=== PATIENT | female | born 2000 | race Caucasian/White ===

== ENCOUNTER 2019-09-02 09:58 | Emergency (ER) | payer OTHER ==
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
== END 2019-09-02 10:43 | disposition home or self-care (01) ==
LOC: MW.ED 09:58
CPT/HCPCS: 99282; 99283

== ENCOUNTER 2020-04-07 14:07 | Emergency (ER) | payer SELFPAY ==
[2020-04-07] MEDS ORDERED: Ondansetron 4 MG Tab.DIS PO ONE (14:57)
--- NOTE | 2020-04-07 15:17 | PCM.SN.2 ---
- Free Text/Narrative Note: EKG Time 308pm Rate 80 NSR No JACKLYN
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
[2020-04-07 15:49] LABS: BLOOD UREA NITROGEN,BUN 7 mg/dL (7.0-18.0); CHLORIDE,CL 103 mmol/L (98-107); GLUCOSE RANDOM 85 mg/dL (74-106); LIPASE 60 U/L (73-393); POTASSIUM,K 3.3 mmol/L (3.5-5.1); SODIUM,NA 139 mmol/L (136-145)
== END 2020-04-07 16:51 | disposition home or self-care (01) ==
LOC: MW.ED 14:07
DX: R11.0 Nausea (principal); R63.0 Anorexia; F17.210 Nicotine dependence, cigarettes, uncomplicated; Z88.2 Allergy status to sulfonamides
CPT/HCPCS: 36415; 80053; 81001; 81025; 83690; 85025; 93005; 99284; A9270; 93010; 99283

== ENCOUNTER 2020-04-11 16:28 | Emergency (ER) | payer SELFPAY ==
[2020-04-11] MEDS ORDERED: Ondansetron 4 MG/2 ML SDV IVPUSH ONE (16:48)
[2020-04-11] MEDS ORDERED: Sodium Chloride 0.9% 2.5 ML Syringe FLUSH PRN (16:48)
[2020-04-11] MEDS ORDERED: Ketorolac 15 MG/ML SDV IVPUSH ONE (16:48)
[2020-04-11] MEDS ORDERED: Sodium Chloride 0.9% 10 ML Syringe FLUSH PRN (16:48)
[2020-04-11] MEDS ORDERED: Sodium Chloride 0.9% 1,000 ML IV ONE (16:50)
[2020-04-11] MEDS ORDERED: Sodium Chloride 0.9% 10 ML SDV IV SCH (17:00)
[2020-04-11] MEDS ORDERED: cefTRIAXone 2 GM in Premix Bag 1 BAG IV ONE (17:11)
[2020-04-11 17:19] LABS: BLOOD UREA NITROGEN,BUN 6 mg/dL (7.0-18.0); CARBON DIOXIDE,CO2 24.7 mmol/L (21.0-32.0); CHLORIDE,CL 104 mmol/L (98-107); GLUCOSE RANDOM 102 mg/dL (74-106); SODIUM,NA 142 mmol/L (136-145)
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
--- NOTE | 2020-04-11 18:19 | CT ---
Indication: Left-sided pain Technique: Nonenhanced axial CT imaging through the abdomen and pelvis. Sagittal and coronal reconstructions are provided. Comparison: None Findings: There is normal renal parenchymal attenuation without hydronephrosis. No stones are seen in the renal collecting systems, ureters, or urinary bladder. Small calcific density in the right pelvis is consistent with a phlebolith. There is unremarkable noncontrast appearance of the liver, gallbladder, spleen, pancreas, and adrenal glands. There is no abdominal lymphadenopathy. There is normal caliber of the abdominal aorta. The stomach and duodenum are unremarkable. There are no abnormally dilated small bowel loops. The appendix is not well-visualized. There is no colonic wall thickening. No inflammatory changes are demonstrated in the mesentery. The uterus and ovaries are grossly unremarkable. No free fluid is appreciated in the pelvis. The osseous structures are unremarkable. The included lung bases are clear. Impression: No acute process is demonstrated in the abdomen and pelvis. No nephrolithiasis or urinary obstruction. Please note that all CT scans at this facility use dose modulation, iterative reconstruction, and/or weight-based dosing when appropriate to reduce radiation dose to as low as reasonably achievable. Dictated by Rand Solomon MD @ Apr 11 2020 6:12PM Signed by Dr. Rand Solomon @ Apr 11 2020 6:17PM
== END 2020-04-11 18:58 | disposition home or self-care (01) ==
LOC: MW.ED 16:28
DX: N10 Acute pyelonephritis (principal); F17.210 Nicotine dependence, cigarettes, uncomplicated; Z88.2 Allergy status to sulfonamides
CPT/HCPCS: 36415; 74176; 80053; 81001; 81025; 85025; 87086; 87088; 87186; 96365; 96375; 99285; J0696; J1885; J2405; J7030; 99283

== ENCOUNTER 2020-04-21 14:55 | Emergency (ER) | payer OTHER ==
[2020-04-21] MEDS ORDERED: Sodium Chloride 0.9% 1,000 ML IV ONE (15:41)
[2020-04-21] MEDS ORDERED: Ketorolac 30 MG/ML SDV IVPUSH ONE (15:41)
[2020-04-21] MEDS ORDERED: Ondansetron 4 MG/2 ML SDV IVPUSH ONE (15:50)
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
[2020-04-21 16:53] LABS: BLOOD UREA NITROGEN,BUN 15 mg/dL (7.0-18.0); CARBON DIOXIDE,CO2 24.9 mmol/L (21.0-32.0); CHLORIDE,CL 103 mmol/L (98-107); GLUCOSE RANDOM 131 mg/dL (74-106); LIPASE 61 U/L (73-393); POTASSIUM,K 3.7 mmol/L (3.5-5.1); SODIUM,NA 138 mmol/L (136-145)
[2020-04-21] MEDS ORDERED: Doxycycline 100 MG Cap PO ONE ×2 (17:47→18:08)
[2020-04-21] MEDS ORDERED: cefTRIAXone 1 GM in Premix Bag 1 BAG IV ONE (17:47)
[2020-04-21] MEDS ORDERED: metroNIDAZOLE 250 MG Tab PO ONE (18:38)
--- NOTE | 2020-04-21 19:04 | US ---
INDICATION: Pelvic pain TECHNIQUE: Ultrasound pelvis transvaginal. Endovaginal imaging was performed to better visualize the endometrium and ovaries. Real-time taylor scale sonographic images with spectral and color Doppler imaging of the ovaries were obtained. COMPARISON: CT 04/11/2020 FINDINGS: Uterus: 6.5 x 2.7 x 3.7 cm. Normal echotexture of the myometrium noted with no masses are seen. Endometrium: 8 mm. No sign of endometrial mass or fluid present. Right ovary: 2.6 x 2.4 x 1.9 cm. The right ovary is normal in appearance and echotexture. Arterial blood flow seen within the right ovary. Left ovary: 2.1 x 2.7 x 1.3 cm. The left ovary is normal in appearance and echotexture. Arterial blood flow seen within the left ovary. Cul-de-sac: Trace simple pelvic ascites is present in the right adnexa. IMPRESSION: 1. Unremarkable pelvic ultrasound. Dictated by Bhavesh Brito MD @ 04/21/2020 7:03:39 PM Dictated by: Bhavesh Brito MD @ 04/21/2020 19:03:43 (Electronically Signed)
[2020-04-21] MEDS ORDERED: Iopamidol 755 MG/ML 500 ML Multipack Bottle IVPUSH ONE (19:19)
--- NOTE | 2020-04-21 19:44 | CT ---
INDICATION: Right-sided abdominal and pelvic pain. Pain during sexual intercourse. History of endometriosis. COMPARISON: CT of the abdomen and pelvis without contrast from 04/11/2020 TECHNIQUE: CT examination of the abdomen and pelvis was performed with the uneventful intravenous administration of 100 cc of Isovue 370 while 3 mm thick axial sections were obtained from the lung bases through the pubic symphysis. Oral contrast was not administered. Please note that all CT scans at this facility use dose modulation, iterative reconstruction, and/or weight-based dosing when appropriate to reduce radiation dose to as low as reasonably achievable. FINDINGS: In the abdomen, the liver, spleen, pancreas, and adrenals are normal in appearance. The kidneys are normal in appearance. The gallbladder is normal in appearance. The abdominal aorta is normal in caliber with no sign of dilatation. There is no sign of retroperitoneal mass or adenopathy. The stomach, loops of small bowel, and colon in the abdomen are normal in appearance. In the pelvis, the appendix partially seen and is normal in appearance with no sign of inflammatory process. The loops of small bowel and colon in the pelvis are normal in appearance. The right ovary contains an irregularly shaped peripherally enhancing cyst measuring 2.0 centimeters in diameter, probably a resolving cyst. There is a tiny amount of free fluid in the right pelvis adjacent to the right ovary, possibly related to cyst rupture. The uterus and left adnexal region are normal in appearance. The urinary bladder is normal in appearance. There is no sign of pelvic or inguinal mass or adenopathy. There is no sign of free air or free fluid in the abdomen. There is no sign of free air or extraluminal air in the pelvis. The lung bases are clear. The osseous structures are normal in appearance for the patient`s age. IMPRESSION: Normal CT of the abdomen with contrast. CT of the abdomen shows a probable resolving cyst on the right ovary measuring up to 2.0 centimeters in diameter. There is a tiny amount of free fluid in the right pelvis, possibly related to cyst rupture. Normal appearance of the appendix. Please note that all CT scans at this facility use dose modulation, iterative reconstruction, and/or weight-based dosing when appropriate to reduce radiation dose to as low as reasonably achievable. Dictated by Yovany Ching MD @ Apr 21 2020 7:36PM Signed by Dr. Yovany Ching @ Apr 21 2020 7:43PM
[2020-04-24 12:03] LABS: C.TRACHOMATIS BY TMA Negative (Negative); N.GONORRHOEAE BY TMA Negative (Negative)
== END 2020-04-21 19:59 | disposition home or self-care (01) ==
LOC: MW.ED 14:55
DX: N73.9 Female pelvic inflammatory disease, unspecified (principal); N76.0 Acute vaginitis; B96.89 Other specified bacterial agents as the cause of diseases classified elsewhere; Z88.2 Allergy status to sulfonamides
CPT/HCPCS: 36415; 74177; 76830; 80053; 81001; 83690; 84703; 85025; 87086; 87480; 87491; 87510; 87591; 87660; 96365; 96375; 99284; A9270; J0696; J1885; J2405; J7030; Q9967; 99283

== ENCOUNTER 2020-07-31 08:17 | Emergency (ER) | payer SELFPAY ==
[2020-07-31] MEDS ORDERED: Sodium Chloride 0.9% 1,000 ML IV ONE (08:40)
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
[2020-07-31] MEDS ORDERED: cefTRIAXone 1 GM in Premix Bag 1 BAG IV ONE (09:26)
--- NOTE | 2020-07-31 09:36 | US ---
INDICATION: Left lower quadrant pain TECHNIQUE: Ultrasound OB pelvis transabdominal and transvaginal. Real-time taylor-scale imaging of the pelvis was performed. COMPARISON: None FINDINGS: Sonographic imaging demonstrates a single living intrauterine gestation. The embryo demonstrates a regular cardiac rate measuring 176 beats per minute. The embryo`s crown rump length measurement of 1.8 cm corresponds to a gestational age of 8 weeks 3 days with a sonographic due date of 03/08/2021. There is a normal appearing yolk sac. There are no gross abnormalities noted within the embryo at this early state of development. The placenta has not yet developed. There is no sign of perigestational hemorrhage. There is trace physiologic fluid in the cul-de-sac. The ovaries are of normal size. There are no suspicious fluid collections noted in the cul-de-sac. IMPRESSION: Single viable intrauterine measuring 8 weeks 4 days by ultrasound measurements. No abnormalities seen. Dictated by Eamon Maradiaga MD @ Jul 31 2020 9:26AM Signed by Dr. Eamon Maradiaga @ Jul 31 2020 9:34AM
[2020-07-31 10:52] LABS: BLOOD UREA NITROGEN,BUN 7 mg/dL (7.0-18.0); CARBON DIOXIDE,CO2 25.2 mmol/L (21.0-32.0); CHLORIDE,CL 102 mmol/L (98-107); GLUCOSE RANDOM 84 mg/dL (74-106); LIPASE 51 U/L (73-393); POTASSIUM,K 3.8 mmol/L (3.5-5.1); SODIUM,NA 135 mmol/L (136-145)
== END 2020-07-31 11:33 | disposition home or self-care (01) ==
LOC: MW.ED 08:17
DX: O23.01 Infections of kidney in pregnancy, first trimester (principal); Z88.2 Allergy status to sulfonamides; Z3A.08 8 weeks gestation of pregnancy
CPT/HCPCS: 36415; 76801; 80053; 81001; 83690; 83735; 84702; 85025; 86900; 86901; 87086; 96365; 99284; J0696; J7030

== ENCOUNTER 2020-09-12 06:58 | Emergency (ER) | payer SELFPAY ==
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
[2020-09-12 08:18] LABS: BLOOD UREA NITROGEN,BUN 6 mg/dL (7.0-18.0); CARBON DIOXIDE,CO2 20.8 mmol/L (21.0-32.0); CHLORIDE,CL 105 mmol/L (98-107); GLUCOSE RANDOM 87 mg/dL (74-106); LIPASE 50 U/L (73-393); POTASSIUM,K 3.8 mmol/L (3.5-5.1); SODIUM,NA 137 mmol/L (136-145)
--- NOTE | 2020-09-12 09:27 | US ---
INDICATION: with lower abdominal cramping. TECHNIQUE: Ultrasound OB pelvis transabdominal. Real-time taylor-scale imaging of the fetus was performed as well as color Doppler and spectral Doppler analysis of the umbilical artery. COMPARISON: July 31, 2020. FINDINGS: Sonographic imaging demonstrates a single living intrauterine gestation. Fetus demonstrates a regular cardiac rate of 156 beats per minute. Fetus has a cephalic orientation. The placenta lies anterior without evidence of placenta previa. Amniotic fluid volume appears normal with a single deepest pocket of 4.1 cm. Cervix is closed measuring 3.7 cm. Biometry: Biparietal diameter: 2.9 cm, 15 weeks 3 days. Head circumference: 10.8 cm, 15 weeks 2 days. Abdominal circumference: 8.9 cm, 15 weeks 2 days. Femoral length: 1.6 cm, 14 weeks 6 days. The composite ultrasound gestational age is calculated at 15 weeks 2 days with an estimated sonographic due date of March 04, 2021. The weight is estimated at 113 grams, the 60th percentile. IMPRESSION: 1.Single viable intrauterine . 2.No abnormality evident. Normal interval growth has been demonstrated. Dictated by Warren Chahal MD @ 09/12/2020 9:26:[address] Warren Chahal @ Sep 12 2020 9:26AM
== END 2020-09-12 09:55 | disposition home or self-care (01) ==
LOC: MW.ED 06:58
DX: O23.591 Infection of other part of genital tract in pregnancy, first trimester (principal); B96.89 Other specified bacterial agents as the cause of diseases classified elsewhere; Z3A.10 10 weeks gestation of pregnancy
CPT/HCPCS: 36415; 76801; 76801-26; 80053; 81001; 83690; 83735; 84100; 84702; 85025; 87480; 87491; 87510; 87591; 87660; 99283; 99284-25

== ENCOUNTER 2021-02-12 02:54 | Emergency (ER) | payer OTHER ==
[2021-02-12] MEDS ORDERED: Acetaminophen 325 MG Tab PO ONE (03:12)
--- NOTE | 2021-02-12 03:49 | CR ---
Indication: Cough Technique: Chest 2 views Comparison: Chest x-ray 03/19/2018 Findings/Impression: Cardiovascular and mediastinum: Heart size and vasculature are normal in caliber and appearance. Mediastinum is within normal limits. Lungs and pleural spaces: Lungs are clear. No sign of infiltrate or mass. No sign of pleural effusion. No pneumothorax. Bones and soft tissues: No significant findings. Dictated by Richard Prince MD @ 02/12/2021 3:48:16 AM (Electronically Signed)
[2021-02-12 04:09] LABS: CORONAVIRUS COVID-19 NAA NEGATIVE (NEGATIVE); INFLUENZA A NAA NEGATIVE (NEGATIVE); INFLUENZA B NAA NEGATIVE (NEGATIVE)
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
== END 2021-02-12 04:49 | disposition home or self-care (01) ==
LOC: MW.ED 02:54
DX: O99.513 Diseases of the respiratory system complicating pregnancy, third trimester (principal); J06.9 Acute upper respiratory infection, unspecified; O99.891 Other specified diseases and conditions complicating pregnancy; R07.89 Other chest pain; Z88.2 Allergy status to sulfonamides; Z20.822 Contact with and (suspected) exposure to COVID-19; Z3A.36 36 weeks gestation of pregnancy
CPT/HCPCS: 0240U; 71046; 93005; 99285; A9270

== ENCOUNTER 2021-02-24 08:55 | Inpatient (IN) | payer OTHER ==
[2021-02-24] MEDS ORDERED: Sodium Chloride 0.9% 10 ML Syringe FLUSH PRN (09:43)
[2021-02-24] MEDS ORDERED: Lidocaine 1% 50 ML MDV INJECT PRN (09:43)
[2021-02-24] MEDS ORDERED: Ondansetron 4 MG/2 ML SDV IVPUSH PRN (09:43)
[2021-02-24] MEDS ORDERED: Tranexamic Acid 1,000 MG in Sodium Chloride 0.9% 100 ML IV PRN (09:43)
[2021-02-24] MEDS ORDERED: Sodium Chloride 0.9% 10 ML SDV IV PRN (09:43)
[2021-02-24] MEDS ORDERED: Sodium Chloride 0.9% 2.5 ML Syringe FLUSH PRN (09:43)
[2021-02-24] MEDS ORDERED: Carboprost Tromethamine 250 MCG/1 ML Amp IM PRN (09:43)
[2021-02-24] MEDS ORDERED: Water For Irrigation,Sterile 1,000 ML Container IRR PRN (09:43)
[2021-02-24] MEDS ORDERED: Methylergonovine 0.2 MG/1 ML Amp IM PRN (09:43)
[2021-02-24] MEDS ORDERED: Misoprostol 200 MCG Tab PO PRN (09:43)
[2021-02-24] MEDS ORDERED: Oxytocin/0.9 % Sodium Chloride 30 UNIT/500 ML BAG IV SCH (09:45)
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
[2021-02-24] MEDS: Lactated Ringers 1,000 ML IV SCH ×3 (15:36→18:58)
[2021-02-24] MEDS: Nalbuphine 10 MG/1 ML Vial IVPUSH PRN ×2 (15:36→16:47)
[2021-02-24] MEDS ORDERED: Ropivacaine HCl/PF 200 ML ONE (17:51)
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
[2021-02-24] MEDS ORDERED: ePHEDrine 50 MG/ML SDV IVPUSH PRN (19:29)
--- NOTE | 2021-02-24 19:29 | PCM.POSTAN ---
POST ANESTHESIA ASSESSMENT - MENTAL STATUS Mental Status: Alert, Oriented - RESPIRATORY Respiratory Status: Respiratory Rate WNL, Airway Patent, O2 Saturation Stable - CARDIOVASCULAR CV Status: Pulse Rate WNL, Blood Pressure Stable - GASTROINTESTINAL GI Status: No Symptoms - PAIN Pain Score: 3 - POST OP HYDRATION Hydration Status: Adequate & Stable
--- NOTE | 2021-02-24 19:29 | PCM.SN.2 ---
Time Documentation - Pre-Procedure Checklist Attending Provider Aware: Yes Chart Reviewed: Yes Consent Signed: Yes Labs Reviewed: Yes VS/FHR Reviewed: Yes Patient Identification Confirmation Method: Reports: Chart Visual, Verbal Patient Pt an Appropriate Candidate for the Planned Anesthesia: Yes Alternatives and Risks of Anesthesia Discussed w Pt/Guardian: Yes - Procedure Procedure Start Date: 02/24/21 Procedure Start Time: 17:[address]: Reports: Blood Pressure, Heart Rate, SPO2 Functional IV: Yes Safety Measures: Reports: Patient Identified, Procedure Verified, Site Verified, Procedure Time Out Patient Position: Reports: Sitting Prep: Reports: Betadine x3 Local Anesthetic: Reports: Intradermal Wheal w Lidocaine 1% (3 ML) Needle: Reports: 17 g Touhy Approach: Reports: Midline Technique: Reports: PRAFUL Glass Syringe PRAFUL Needle Depth (cm): 6 cm Parasthesia: Reports: None Fluid Obtained: Reports: None Catheter Depth at Skin (cm): 13 cm Test Dose Time: 17:46 Test Dose Medication: Reports: Lidocaine 1.5% w Epinephrine 1:200,000 (5 ml) Test Dose Response: Reports: Negative Loading Dose Time: 17:57 Loading Dose Medication: Ropivicaine 0.2% 8 ML Loading Dose Patient Position: Supine for 4ML and left tilt for 4ML Continuous Infusion Start Time: 18:00 Continuous Infusion Medication: Ropivicaine 0.2% Continuous Infusion Rate: 10 Continuous Infusion PCS Bolus Option: 6 Continuous Infusion Lockout Dose (cc/hr): 20 Patient Position Post Placement: Reports: Supline/MARYAM Post-procedure Pain Level: 3 Level Achieved: T4 VS and FHR Monitored in Unit Post Placement: Yes Procedure End Date: 02/24/21 Procedure End Time: 18:00 Procedure Comment: Sterile technique used throughout.
[2021-02-24] MEDS ORDERED: Ropivacaine/PF 400 MG/200 ML PCA EPIDUR SCH (19:30)
--- NOTE | 2021-02-24 22:09 | PCM.DEL ---
L & D Note - General Info Date of Service: 02/24/21 Mother's Due Date: 03/08/21 - Delivery Note Labor: Spontaneous Delivery Outcome: Livebirth Infant Delivery Method: Spontaneous Vaginal Delivery-Single Infant Delivery Mode: Spontaneous Presentation: Left Occiput Anterior ([place]) (with compound left arm/hand, arm umbilical cord nuchal x1) Nuchal Cord: None Anesthesia Type: Epidural Amniotic Fluid Description: Clear Episiotomy Type: None Laceration: Perineal (Minor skin tear, hemostatic, not repaired.), Periurethral (Bilateral minor skin tear, hemostatic, not repaired.) Placenta: Intact, Spontaneous Cord: 3 Vessels Estimated Blood Loss: 350 Resuscitation Needed: No : Bulb Syringe, Stimulated, Warmed, [place] Used Score 1 min: 8 Score 5 min: 9 Second Stage Interventions: Reports: Second Nurse Reviewed Heart Tones, Encouragement Given, Pushing Effectively, Other (see below) (Hands and knees) Delivery Comments (Free Text/Narrative):: Zora is a 20 yo at 38+2 weeks gestation (SIMRAN(US) 03/08/2021) immediately s/p of viable term NBM following SROM at 9 am today with onset of spontaneous labor. O pos, Ab screen neg, RI, GBS neg. BLE epidural in place, pain well controlled. NRFHTs noted prior to terminal , Dr. Barry and fabrication lead called to bedside, en route. Patient moved to hands and knees position with 100% O2 and LR bolus running for intrauterine resuscitation. FHTs recovered to 110s to 120s in 5 minutes prior to . head delivered [place] with compound left arm and hand, umbilical cord nuchal x1 to left arm. body birthed immediately following with next push. CNM warmed, dried, stimulated with baby RN bulb suctioning, spontaneous cries shortly after . Baby RN then held baby while continuing warming, drying, and stimulation, CNM clamped cord x 2, cut. NBM brought to warmer ~45 seconds after for assessment, spontaneous crying continuing. Dr. Barry and fabrication lead at bedside within 1-2 minutes s/p for maternal and assessment respectively; no further interventions were performed by either provider. IV pitocin bolus started for active third stage management. Patient moved back to semi-fowlers position with both legs in rests, cord blood collected, 2-3 inch segment clamped x2 for RN to collect cord gasses. Placenta birthed intact, [place], 3VC ~10 min s/p . Perineum inspected, minor bilateral periurethral skin tears and minor perineal skin tear noted; all hemostatic or scantly oozing, not repaired. Uterus firm, U-1 with scant rubra lochia, no clots. EBL 350. APGARS 8/9. weight 6 lb 2 oz (2790 g). - General Info Date of Service: 02/24/21 Admission Dx/Problem (Free Text): Patient Status Order with Admit Dx/Problem 02/24/21 08:45 Patient Status [ADT] Routine 02/24/21 09:43 Patient Status [ADT] Routine Admission Diagnosis/Problem Admission Diagnosis/Problem 02/24/21 12:18 Zora is a 20 yo at 38+2 weeks gestation (SIMRAN() 03/08/2021) that presents today w/ C/O painful contractions and SROM today at 9 am today. O pos, Ab screen neg, RI, GBS neg. Reports + FM; denies LOF, vaginal bleeding at this time. Unremarkable course. H/O uncertain paternity, desires tested upon ; PTSD, anxiety, depression. Patient confirmed vertex via SVE. Amnisure positive, confirmed SROM. Functional Status: Reports: Pain Controlled - Review of Systems General: Reports: No Symptoms HEENT: Reports: No Symptoms Pulmonary: Reports: No Symptoms Cardiovascular: Reports: No Symptoms Gastrointestinal: Reports: No Symptoms Genitourinary: Reports: No Symptoms Musculoskeletal: Reports: No Symptoms Skin: Reports: No Symptoms Neurological: Reports: No Symptoms Psychiatric: Reports: No Symptoms - Patient Data Vitals - Most Recent: VSS, afebrile. See flowsheet. Weight - Most Recent: 150 lb I&O - Last 24 Hours: Intake & Output 02/24/21 02/24/21 02/24/21 06:59 14:59 22:59 Intake Total 1999 Balance 1999 Lab Results Last 24 Hours: Laboratory Results - last 24 hr 02/24/21 02/24/21 02/24/21 Range/Units 09:01 10:13 10:13 WBC 10.56 (4.0-11.0) K/uL RBC 4.66 (4.30-5.90) M/uL Hgb 13.7 (12.0-16.0) g/dL Hct 39.6 (36.0-46.0) % MCV 85.0 (80.0-98.0) fL MCH 29.4 (27.0-32.0) pg MCHC 34.6 (31.0-37.0) g/dL RDW Std Deviation 42.4 (28.0-62.0) fl RDW Coeff of Xin 14 (11.0-15.0) % Plt Count 207 (150-400) K/uL MPV 12.40 H (7.40-12.00) fL Nucleated RBC % 0.0 /100WBC Nucleated RBCs # 0 K/uL Membrane Rupture POSITIVE SARS-CoV-2 RNA ([place]NEY) (NEGATIVE) Blood Type O POSITIVE Antibody Screen NEGATIVE 02/24/21 Range/Units 10:19 WBC (4.0-11.0) K/uL RBC (4.30-5.90) M/uL Hgb (12.0-16.0) g/dL Hct (36.0-46.0) % MCV (80.0-98.0) fL MCH (27.0-32.0) pg MCHC (31.0-37.0) g/dL RDW Std Deviation (28.0-62.0) fl RDW Coeff of Xin (11.0-15.0) % Plt Count (150-400) K/uL MPV (7.40-12.00) fL Nucleated RBC % /100WBC Nucleated RBCs # K/uL Membrane Rupture SARS-CoV-2 RNA (C[facility]RTNEY) NEGATIVE (NEGATIVE) Blood Type Antibody Screen Med Orders - Current: Current Medications Carboprost Tromethamine (Carboprost Tromethamine 250 Mcg/1 Ml Amp) 250 mcg IM ASDIRECTED PRN PRN Reason: Post Hemorrhage Ephedrine Sulfate (Ephedrine 50 Mg/Ml Sdv) 10 mg IVPUSH Q1M PRN PRN Reason: Hypotension Lactated Ringer's (Ringers, Lactated) 1,000 mls @ 150 mls/hr IV ASDIRECTED YANI Last Admin: 02/24/21 18:58 Dose: 150 mls/hr Documented by: Oxytocin/Sodium Chloride (Oxytocin 30 Unit In Ns 0.9% 500 Ml Premix) 30 unit in 500 mls @ 500 mls/hr IV TITRATE YANI Tranexamic Acid 1,000 mg/ (Sodium Chloride) 110 mls @ 660 mls/hr IV ONETIME PRN PRN Reason: Bleeding Lidocaine HCl (Lidocaine 1% 50 Ml Mdv) 50 ml INJECT ONETIME PRN PRN Reason: Laceration repair Methylergonovine Maleate (Methylergonovine 0.2 Mg/1 Ml Amp) 0.2 mg IM ASDIRECTED PRN PRN Reason: Post Hemorrhage Miscellaneous Medication (Phenylephrine Hcl In 0.9% Nacl 1 Mg/10 Ml Syringe) 0.1 mg IVPUSH Q1M PRN PRN Reason: Hypotension Misoprostol (Misoprostol 200 Mcg Tab) 200 mcg PO ONETIME PRN PRN Reason: Post Hemorrhage Nalbuphine HCl (Nalbuphine 10 Mg/1 Ml Vial) 10 mg IVPUSH Q1H PRN PRN Reason: Pain (severe 7-10) Last Admin: 02/24/21 16:47 Dose: 10 mg Documented by: Ondansetron HCl (Ondansetron 4 Mg/2 Ml Sdv) 4 mg IVPUSH Q6H PRN PRN Reason: Nausea/Vomiting Last Admin: 02/24/21 15:43 Dose: 4 mg Documented by: Ropivacaine (Ropivacaine/Pf 400 Mg/200 Ml Staff Sonographer) 400 mg EPIDUR ASDIRECTED YANI Sodium Chloride (Sodium Chloride 0.9% 10 Ml Syringe) 10 ml FLUSH ASDIRECTED PRN PRN Reason: Keep Vein Open Sodium Chloride (Sodium Chloride 0.9% 2.5 Ml Syringe) 2.5 ml FLUSH ASDIRECTED PRN PRN Reason: Keep Vein Open Sodium Chloride (Sodium Chloride 0.9% 10 Ml Sdv) 10 ml IV ASDIRECTED PRN PRN Reason: IV Use Sterile Water (Water For Irrigation,Sterile 1,000 Ml Container) 1,000 ml IRR ASDIRECTED PRN PRN Reason: delivery Discontinued Medications Ropivacaine (Naropin 0.2%) Confirm Administered Dose 200 mls @ as directed .ROUTE .STK-MED ONE Stop: 02/24/21 17:52 Last Admin: 02/24/21 19:04 Dose: Not Given Documented by: - Exam General: Alert, Oriented, Cooperative, No Acute Distress HEENT: Pupils Equal, Mucous Membr. Moist/[place] Neck: Supple Lungs: Clear to Auscultation, Normal Respiratory Effort Cardiovascular: Regular Rate, Regular Rhythm GI/Abdominal Exam: Normal Bowel Sounds, Soft, Non-Tender, No Organomegaly, No Distention (Female) Exam: Normal External Exam, Enlarged Uterus ( uterus, firm U-1), Vaginal Bleeding (scant rubra lochia no clots.) Back Exam: Normal Inspection, Full Range of Motion Extremities: Normal Inspection, Normal Range of Motion, Non-Tender, No Pedal Edema, Normal Capillary Refill Skin: Warm, Dry, Intact Wound/Incisions: No Drainage Neurological: No New Focal Deficit (BLE epidural intact, pain well controlled.) Psy/Mental Status: Alert, Normal Affect, Normal Mood - Problem List & Annotations (1) (spontaneous vaginal delivery) SNOMED Code(s): 503085095 Code(s): O80 - ENCOUNTER FOR FULL-TERM UNCOMPLICATED DELIVERY Status: Acute Priority: High Current Visit: Yes (2) Lactating mother SNOMED Code(s): 364003855, 724271970 Code(s): Z39.1 - ENCOUNTER FOR CARE AND EXAMINATION OF LACTATING MOTHER Status: Acute Priority: High Current Visit: Yes - Problem List Review Problem List Initiated/Reviewed/Updated: Yes - My Orders Last 24 Hours: My Active Orders 02/24/21 09:05 Resuscitation Status Routine 02/24/21 09:08 Non Stress Test [RC] PER UNIT ROUTINE Up ad Renetta [RC] ASDIRECTED Vaginal Exam [RC] Click to Edit Vital Signs [RC] PER UNIT ROUTINE 02/24/21 09:43 Patient Status [ADT] Routine Heart Tones [RC] CONTINUOUS May Shower [RC] ASDIRECTED Notify Provider [RC] PRN Carboprost Tromethamine [Hemabate DS] 250 mcg IM ASDIRECTED PRN Lidocaine 1% [Xylocaine 1%] 50 ml INJECT ONETIME PRN Methylergonovine [Methergine] 0.2 mg IM ASDIRECTED PRN Nalbuphine [Nubain] 10 mg IVPUSH Q1H PRN Ondansetron [Zofran] 4 mg IVPUSH Q6H PRN Sodium Chloride 0.9% [Normal Saline] 10 ml IV ASDIRECTED PRN Sodium Chloride 0.9% [Saline Flush] 10 ml FLUSH ASDIRECTED PRN Sodium Chloride 0.9% [Saline Flush] 2.5 ml FLUSH ASDIRECTED PRN Tranexamic Acid [Cyklokapron] 1,000 mg Sodium Chloride 0.9% [Normal Saline] 100 ml IV ONETIME Water For Irrigation,Sterile [Sterile Water for Irrigation] 1,000 ml IRR ASDIRECTED PRN miSOPROStoL [Cytotec] 200 mcg PO ONETIME PRN Scalp Electrode [WOMSER] Per Unit Routine Peripheral IV Insertion Adult [OM.PC] Routine 02/24/21 09:45 Lactated Ringers [Ringers, Lactated] 1,000 ml IV ASDIRECTED Oxytocin/0.9 % Sodium Chloride [Oxytocin 30 Unit in NS 0.9% 500 ML Premix] 30 unit in 500 ml IV TITRATE 02/24/21 10:13 RPR (SYPHILIS SERO) W/ RFLX [REF] Routine - Plan Plan:: Admit to inpatient unit s/p of viable, term following SROM and spontaneous onset of labor. Resume regular diet. D/C epidural now. May ambulate in 2-4 hours following return of sensation with assistance. If not voided within 6 hours, may I&O cath once and notify provider. See new orders. Dr. Barry notified and agreeable with POC.
[2021-02-24] MEDS ORDERED: Bisacodyl 10 MG Supp RECTAL PRN (22:29)
[2021-02-24] MEDS ORDERED: Benzocaine/Menthol 20%-0.5% Spray 78 GM Cannister TOP PRN (22:29)
[2021-02-24] MEDS ORDERED: Ibuprofen 400 MG Tab PO PRN (22:29)
[2021-02-24] MEDS ORDERED: Acetaminophen 500 MG Tab PO PRN (22:29)
[2021-02-24] MEDS ORDERED: Lanolin 100% Cream 7 GM Tube TOP PRN (22:29)
[2021-02-24] MEDS ORDERED: oxyCODONE 5 MG Tab PO PRN (22:29)
[2021-02-24] MEDS ORDERED: Witch Hazel Medicated Pads 40/Jar TOP PRN (22:29)
[2021-02-24] MEDS: Ibuprofen 800 MG Tab PO PRN (22:39)
[2021-02-25] MEDS: Ibuprofen 800 MG Tab PO PRN ×4 (04:18→23:21)
--- NOTE | 2021-02-25 04:24 | PCM.PNPP ---
- General Info Date of Service: 02/25/21 Admission Dx/Problem (Free Text): Patient Status Order with Admit Dx/Problem 02/24/21 08:45 Patient Status [ADT] Routine 02/24/21 09:43 Patient Status [ADT] Routine Admission Diagnosis/Problem Admission Diagnosis/Problem 02/24/21 12:18 Zora is a 20 yo at 38+2 weeks gestation (SIMRAN(US) 03/08/2021) that presents today w/ C/O painful contractions and SROM today at 9 am today. O pos, Ab screen neg, RI, GBS neg. Reports + FM; denies LOF, vaginal bleeding at this time. Unremarkable course. H/O uncertain paternity, desires tested upon ; PTSD, anxiety, depression. Patient confirmed vertex via SVE. Amnisure positive, confirmed SROM. Subjective Update: Zora is a 20 yo current immediately s/p of viable term NBM at at 38 +2 weeks gestation (SIMRAN(US) 03/08/2021) following SROM with onset of spontaneous labor. O pos, Ab screen neg, RI, GBS neg. Currently resting in bed, infant in bedside in bassinet. Independently eating, hydrating, voiding, and ambulating. Breast feeding well, no problems. Denies any complaints or concerns at this time except fatigue re: cluster feeding and mild to moderate intermittent uterine cramping somewhat relieved with ibuprofen. Reports small vaginal bleeding, no clots. No other problems or concerns at this time. Functional Status: Reports: Pain Controlled, Tolerating Diet, Ambulating, Urinating - Review of Systems General: Reports: No Symptoms HEENT: Reports: No Symptoms Pulmonary: Reports: No Symptoms Cardiovascular: Reports: No Symptoms Gastrointestinal: Reports: No Symptoms Genitourinary: Reports: No Symptoms Musculoskeletal: Reports: No Symptoms Skin: Reports: No Symptoms Neurological: Reports: No Symptoms Psychiatric: Reports: No Symptoms - General Info Date of Service: 02/25/21 - Patient Data Vital Signs - Most Recent: Last Vital Signs Temp 98.2 F 02/25/21 03:20 Pulse 62 02/25/21 03:20 Resp 15 02/25/21 03:20 BP 108/63 02/25/21 03:20 Pulse Ox 97 02/25/21 03:20 Weight - Most Recent: 150 lb I&O - Last 24 Hours: Intake & Output 02/24/21 02/24/21 02/25/21 14:59 22:59 06:59 Intake Total 1999 Balance 1999 Lab Results - Last 24 Hours: Laboratory Results - last 24 hr 02/24/21 02/24/21 02/24/21 Range/Units 09:01 10:13 10:13 WBC 10.56 (4.0-11.0) K/uL RBC 4.66 (4.30-5.90) M/uL Hgb 13.7 (12.0-16.0) g/dL Hct 39.6 (36.0-46.0) % MCV 85.0 (80.0-98.0) fL MCH 29.4 (27.0-32.0) pg MCHC 34.6 (31.0-37.0) g/dL RDW Std Deviation 42.4 (28.0-62.0) fl RDW Coeff of Xin 14 (11.0-15.0) % Plt Count 207 (150-400) K/uL MPV 12.40 H (7.40-12.00) fL Nucleated RBC % 0.0 /100WBC Nucleated RBCs # 0 K/uL Cord ABG pH (7.18-7.38) Cord ABG Base Excess (-10--2) Cord VBG pH (7.25-7.45) Cord VBG Base Excess (-10--2) Membrane Rupture POSITIVE SARS-CoV-2 RNA (COURTNEY) (NEGATIVE) Blood Type O POSITIVE Antibody Screen NEGATIVE 02/24/21 02/24/21 Range/Units 10:19 21:40 WBC (4.0-11.0) K/uL RBC (4.30-5.90) M/uL Hgb (12.0-16.0) g/dL Hct (36.0-46.0) % MCV (80.0-98.0) fL MCH (27.0-32.0) pg MCHC (31.0-37.0) g/dL RDW Std Deviation (28.0-62.0) fl RDW Coeff of Xin (11.0-15.0) % Plt Count (150-400) K/uL MPV (7.40-12.00) fL Nucleated RBC % /100WBC Nucleated RBCs # K/uL Cord ABG pH 7.162 L (7.18-7.38) Cord ABG Base Excess -8 (-10--2) Cord VBG pH 7.218 L (7.25-7.45) Cord VBG Base Excess -6 (-10--2) Membrane Rupture SARS-CoV-2 RNA (COURTNEY) NEGATIVE (NEGATIVE) Blood Type Antibody Screen Med Orders - Current: Current Medications Acetaminophen (Acetaminophen 500 Mg Tab) 500 mg PO Q4H PRN PRN Reason: Pain (mild 1-3) Last Admin: 02/24/21 22:39 Dose: 500 mg Documented by: Acetaminophen (Acetaminophen 500 Mg Tab) 1,000 mg PO Q4H PRN PRN Reason: Pain (mild 1-3) Benzocaine/Menthol (Benzocaine/Menthol 20%-0.5% [place] 78 Gm Cannister) 78 gm TOP ASDIRECTED PRN PRN Reason: Perineal Comfort Measure Last Admin: 02/24/21 23:13 Dose: 1 can Documented by: Bisacodyl (Bisacodyl 10 Mg Supp) 10 mg RECTAL ONETIME PRN PRN Reason: Constipation Docusate Sodium (Docusate Sodium 100 Mg Cap) 100 mg PO Q12H PRN PRN Reason: Constipation Emollient Ointment (Lanolin 100% Cream 7 Gm Tube) 0 gm TOP ASDIRECTED PRN PRN Reason: Sore Nipples Last Admin: 02/24/21 23:14 Dose: 7 gm Documented by: Ibuprofen (Ibuprofen 400 Mg Tab) 400 mg PO Q4H PRN PRN Reason: Pain (mild 1-3) Ibuprofen (Ibuprofen 800 Mg Tab) 800 mg PO Q6H PRN PRN Reason: Cramping Last Admin: 02/25/21 04:18 Dose: 800 mg Documented by: Oxycodone HCl (Oxycodone 5 Mg Tab) 5 mg PO Q2H PRN PRN Reason: Pain (severe 7-10) Witch Irina (Witch Irina Medicated Pads 40/Jar) 1 pad TOP ASDIRECTED PRN PRN Reason: comfort care Last Admin: 02/24/21 23:14 Dose: 1 tub Documented by: Discontinued Medications Carboprost Tromethamine (Carboprost Tromethamine 250 Mcg/1 Ml Amp) 250 mcg IM ASDIRECTED PRN PRN Reason: Post Hemorrhage Ephedrine Sulfate (Ephedrine 50 Mg/Ml Sdv) 10 mg IVPUSH Q1M PRN PRN Reason: Hypotension Lactated Ringer's (Ringers, Lactated) 1,000 mls @ 150 mls/hr IV ASDIRECTED [facility] Last Admin: 02/24/21 18:58 Dose: 150 mls/hr Documented by: Oxytocin/Sodium Chloride (Oxytocin 30 Unit In Ns 0.9% 500 Ml Premix) 30 unit in 500 mls @ 500 mls/hr IV TITRATE [facility] Last Infusion: 02/24/21 22:05 Dose: 250 mls/hr Documented by: Tranexamic Acid 1,000 mg/ (Sodium Chloride) 110 mls @ 660 mls/hr IV ONETIME PRN PRN Reason: Bleeding Ropivacaine (Naropin 0.2%) Confirm Administered Dose 200 mls @ as directed .ROUTE .[facility]-MED ONE Stop: 02/24/21 17:52 Last Admin: 02/24/21 19:04 Dose: Not Given Documented by: Lidocaine HCl (Lidocaine 1% 50 Ml Mdv) 50 ml INJECT ONETIME PRN PRN Reason: Laceration repair Methylergonovine Maleate (Methylergonovine 0.2 Mg/1 Ml Amp) 0.2 mg IM ASDIRECTED PRN PRN Reason: Post Hemorrhage Miscellaneous Medication (Phenylephrine Hcl In 0.9% Nacl 1 Mg/10 Ml Syringe) 0.1 mg IVPUSH Q1M PRN PRN Reason: Hypotension Misoprostol (Misoprostol 200 Mcg Tab) 200 mcg PO ONETIME PRN PRN Reason: Post Hemorrhage Nalbuphine HCl (Nalbuphine 10 Mg/1 Ml Vial) 10 mg IVPUSH Q1H PRN PRN Reason: Pain (severe 7-10) Last Admin: 02/24/21 16:47 Dose: 10 mg Documented by: Ondansetron HCl (Ondansetron 4 Mg/2 Ml Sdv) 4 mg IVPUSH Q6H PRN PRN Reason: Nausea/Vomiting Last Admin: 02/24/21 15:43 Dose: 4 mg Documented by: Ropivacaine (Ropivacaine/Pf 400 Mg/200 Ml Literary Writer) 400 mg EPIDUR ASDIRECTED [facility] Sodium Chloride (Sodium Chloride 0.9% 10 Ml Syringe) 10 ml FLUSH ASDIRECTED PRN PRN Reason: Keep Vein Open Sodium Chloride (Sodium Chloride 0.9% 2.5 Ml Syringe) 2.5 ml FLUSH ASDIRECTED PRN PRN Reason: Keep Vein Open Sodium Chloride (Sodium Chloride 0.9% 10 Ml Sdv) 10 ml IV ASDIRECTED PRN PRN Reason: IV Use Sterile Water (Water For Irrigation,Sterile 1,000 Ml Container) 1,000 ml IRR ASDIRECTED PRN PRN Reason: delivery Last Admin: 02/24/21 21:50 Dose: 1,000 ml Documented by: - Interaction Infant Disposition, : [place] in Room with Family Interaction: Not Interacting Infant Feeding: Breastfed ; Nursed Well, Continues to Breastfeed, Encouraged to Breastfeed Support Person: Mother - Recovery Exam Fundal Tone: Firm Fundal Level: At Umbilicus Fundal Placement: Midline Lochia Amount: Small Lochia Color: Rubra/Red Perineum Description: Redness, Edematous Episiotomy/Laceration: None Bladder Status: Voiding Urinary Elimination: Voided - Exam General: Alert, Oriented, Cooperative, No Acute Distress HEENT: Pupils Equal, Mucous Membr. Moist/[place] Neck: Supple Lungs: Clear to Auscultation, Normal Respiratory Effort Cardiovascular: Regular Rate, Regular Rhythm GI/Abdominal Exam: Normal Bowel Sounds, Soft, Non-Tender, No Organomegaly, No Distention Extremities: Normal Inspection, Normal Range of Motion, Non-Tender, No Pedal Edema, Normal Capillary Refill Skin: Warm, Dry, Intact Wound/Incisions: No Drainage Psy/Mental Status: Alert, Normal Affect, Normal Mood - Problem List & Annotations (1) (spontaneous vaginal delivery) SNOMED Code(s): 374609814 Code(s): O80 - ENCOUNTER FOR FULL-TERM UNCOMPLICATED DELIVERY Status: Acute Priority: High Current Visit: Yes (2) Lactating mother SNOMED Code(s): 461817440, 461928955 Code(s): Z39.1 - ENCOUNTER FOR CARE AND EXAMINATION OF LACTATING MOTHER Status: Acute Priority: High Current Visit: Yes - Problem List Review Problem List Initiated/Reviewed/Updated: Yes - My Orders Last 24 Hours: My Active Orders 02/24/21 10:13 RPR (SYPHILIS SERO) W/ RFLX [REF] Routine 02/24/21 Dinner Regular Diet [DIET] 02/24/21 22:29 Patient Status [ADT] Routine May Shower [RC] ASDIRECTED Up ad Renetta [RC] ASDIRECTED Vital Signs [RC] PER UNIT ROUTINE Acetaminophen [Tylenol Extra Strength] 1,000 mg PO Q4H PRN Acetaminophen [Tylenol Extra Strength] 500 mg PO Q4H PRN Benzocaine/Menthol [Dermoplast Pain Relief 20%-0.5% [place]] 78 gm TOP ASDIRECTED PRN Docusate Sodium [Colace] 100 mg PO Q12H PRN Ibuprofen [Motrin] 400 mg PO Q4H PRN Ibuprofen [Motrin] 800 mg PO Q6H PRN Lanolin [Lansinoh HPA] See Dose Instructions TOP ASDIRECTED PRN bisacodyL [Dulcolax] 10 mg RECTAL ONETIME PRN oxyCODONE 5 mg PO Q2H PRN witch Irina [Tucks] 1 pad TOP ASDIRECTED PRN Assess Lochia [WOMSER] Per Unit Routine Assess Uterine Involution [WOMSER] Per Unit Routine Peripheral IV Discontinue [OM.PC] Routine Resuscitation Status Routine 02/24/21 22:30 Cooling Warming Measures [RC] ASDIRECTED Ice Therapy [OM.PC] Per Unit Routine Perineal Care [OM.PC] Per Unit Routine Sitz Bath [OM.PC] Per Unit Routine - Plan Plan:: Continue course of care PPD0 s/p of viable, term following SROM and spontaneous onset of labor. Continue regular diet. Plan to ambulate 3-5 times daily. No new orders. Dr. Barry notified and agreeable with POC.
[2021-02-25] MEDS: Acetaminophen 500 MG Tab PO PRN ×2 (10:11→15:33)
--- NOTE | 2021-02-25 11:05 | PCM48HPAN ---
Post Anesthesia Note - EVALUATION WITHIN 48HRS OF ANESTHETIC Vital Signs in Normal Range: Yes Patient Participated in Evaluation: Yes Respiratory Function Stable: Yes Airway Patent: Yes Cardiovascular Function Stable: Yes Hydration Status Stable: Yes Pain Control Satisfactory: Yes Nausea and Vomiting Control Satisfactory: Yes Mental Status Recovered: Yes Vital Signs: Last Vital Signs Temp 36.8 C 02/25/21 08:00 Pulse 62 02/25/21 08:00 Resp 16 02/25/21 08:00 BP 93/43 L 02/25/21 08:00 Pulse Ox 95 02/25/21 08:00 - COMMENTS/OBSERVATIONS Free Text/Narrative:: Pt states to being up and walking with no issues
[2021-02-25] MEDS: Docusate Sodium 100 MG Cap PO PRN (15:33)
[2021-02-26] MEDS: Acetaminophen 500 MG Tab PO PRN (03:49)
--- NOTE | 2021-02-26 08:27 | PCM.PNPP ---
- General Info Date of Service: 02/26/21 Admission Dx/Problem (Free Text): Patient Status Order with Admit Dx/Problem 02/24/21 08:45 Patient Status [ADT] Routine 02/24/21 09:43 Patient Status [ADT] Routine Admission Diagnosis/Problem Admission Diagnosis/Problem 02/24/21 12:18 Zora is a 20 yo at 38+2 weeks gestation (SIMRAN() 03/08/2021) that presents today w/ C/O painful contractions and SROM today at 9 am today. O pos, Ab screen neg, RI, GBS neg. Reports + FM; denies LOF, vaginal bleeding at this time. Unremarkable course. H/O uncertain paternity, desires tested upon ; PTSD, anxiety, depression. Patient confirmed vertex via SVE. Amnisure positive, confirmed SROM. Subjective Update: well and bonding well with baby. Ambulating, voiding, and tolera ting diet. NO concerns/questions at this time. Functional Status: Reports: Pain Controlled, Tolerating Diet, Ambulating, Urinating - Review of Systems General: Reports: No Symptoms HEENT: Reports: No Symptoms Pulmonary: Reports: No Symptoms Cardiovascular: Reports: No Symptoms Gastrointestinal: Reports: No Symptoms Genitourinary: Reports: No Symptoms Musculoskeletal: Reports: No Symptoms Skin: Reports: No Symptoms Neurological: Reports: No Symptoms Psychiatric: Reports: No Symptoms - General Info Date of Service: 02/26/21 - Patient Data Vital Signs - Most Recent: Last Vital Signs Temp 97.6 F 02/26/21 03:59 Pulse 63 02/26/21 03:59 Resp 17 02/26/21 03:59 BP 121/72 02/26/21 03:59 Pulse Ox 95 02/26/21 03:59 Weight - Most Recent: 150 lb Med Orders - Current: Current Medications Acetaminophen (Acetaminophen 500 Mg Tab) 500 mg PO Q4H PRN PRN Reason: Pain (mild 1-3) Last Admin: 02/24/21 22:39 Dose: 500 mg Documented by: Acetaminophen (Acetaminophen 500 Mg Tab) 1,000 mg PO Q4H PRN PRN Reason: Pain (mild 1-3) Last Admin: 02/26/21 03:49 Dose: 1,000 mg Documented by: Benzocaine/Menthol (Benzocaine/Menthol 20%-0.5% [place] 78 Gm Cannister) 78 gm TOP ASDIRECTED PRN PRN Reason: Perineal Comfort Measure Last Admin: 02/24/21 23:13 Dose: 1 can Documented by: Bisacodyl (Bisacodyl 10 Mg Supp) 10 mg RECTAL ONETIME PRN PRN Reason: Constipation Docusate Sodium (Docusate Sodium 100 Mg Cap) 100 mg PO Q12H PRN PRN Reason: Constipation Last Admin: 02/25/21 15:33 Dose: 100 mg Documented by: Emollient Ointment (Lanolin 100% Cream 7 Gm Tube) 0 gm TOP ASDIRECTED PRN PRN Reason: Sore Nipples Last Admin: 02/24/21 23:14 Dose: 7 gm Documented by: Ibuprofen (Ibuprofen 400 Mg Tab) 400 mg PO Q4H PRN PRN Reason: Pain (mild 1-3) Ibuprofen (Ibuprofen 800 Mg Tab) 800 mg PO Q6H PRN PRN Reason: Cramping Last Admin: 02/25/21 23:21 Dose: 800 mg Documented by: Oxycodone HCl (Oxycodone 5 Mg Tab) 5 mg PO Q2H PRN PRN Reason: Pain (severe 7-10) Witch Irina (Witch Irina Medicated Pads 40/Jar) 1 pad TOP ASDIRECTED PRN PRN Reason: comfort care Last Admin: 02/24/21 23:14 Dose: 1 tub Documented by: Discontinued Medications Carboprost Tromethamine (Carboprost Tromethamine 250 Mcg/1 Ml Amp) 250 mcg IM ASDIRECTED PRN PRN Reason: Post Hemorrhage Ephedrine Sulfate (Ephedrine 50 Mg/Ml Sdv) 10 mg IVPUSH Q1M PRN PRN Reason: Hypotension Lactated Ringer's (Ringers, Lactated) 1,000 mls @ 150 mls/hr IV ASDIRECTED [facility] Last Admin: 02/24/21 18:58 Dose: 150 mls/hr Documented by: Oxytocin/Sodium Chloride (Oxytocin 30 Unit In Ns 0.9% 500 Ml Premix) 30 unit in 500 mls @ 500 mls/hr IV TITRATE [facility] Last Infusion: 02/24/21 22:05 Dose: 250 mls/hr Documented by: Tranexamic Acid 1,000 mg/ (Sodium Chloride) 110 mls @ 660 mls/hr IV ONETIME PRN PRN Reason: Bleeding Ropivacaine (Naropin 0.2%) Confirm Administered Dose 200 mls @ as directed .ROUTE .[facility]-MED ONE Stop: 02/24/21 17:52 Last Admin: 02/24/21 19:04 Dose: Not Given Documented by: Lidocaine HCl (Lidocaine 1% 50 Ml Mdv) 50 ml INJECT ONETIME PRN PRN Reason: Laceration repair Methylergonovine Maleate (Methylergonovine 0.2 Mg/1 Ml Amp) 0.2 mg IM ASDIRECTED PRN PRN Reason: Post Hemorrhage Miscellaneous Medication (Phenylephrine Hcl In 0.9% Nacl 1 Mg/10 Ml Syringe) 0.1 mg IVPUSH Q1M PRN PRN Reason: Hypotension Misoprostol (Misoprostol 200 Mcg Tab) 200 mcg PO ONETIME PRN PRN Reason: Post Hemorrhage Nalbuphine HCl (Nalbuphine 10 Mg/1 Ml Vial) 10 mg IVPUSH Q1H PRN PRN Reason: Pain (severe 7-10) Last Admin: 02/24/21 16:47 Dose: 10 mg Documented by: Ondansetron HCl (Ondansetron 4 Mg/2 Ml Sdv) 4 mg IVPUSH Q6H PRN PRN Reason: Nausea/Vomiting Last Admin: 02/24/21 15:43 Dose: 4 mg Documented by: Ropivacaine (Ropivacaine/Pf 400 Mg/200 Ml Civil Engineering Specialist) 400 mg EPIDUR ASDIRECTED [facility] Sodium Chloride (Sodium Chloride 0.9% 10 Ml Syringe) 10 ml FLUSH ASDIRECTED PRN PRN Reason: Keep Vein Open Sodium Chloride (Sodium Chloride 0.9% 2.5 Ml Syringe) 2.5 ml FLUSH ASDIRECTED PRN PRN Reason: Keep Vein Open Sodium Chloride (Sodium Chloride 0.9% 10 Ml Sdv) 10 ml IV ASDIRECTED PRN PRN Reason: IV Use Sterile Water (Water For Irrigation,Sterile 1,000 Ml Container) 1,000 ml IRR ASDIRECTED PRN PRN Reason: delivery Last Admin: 02/24/21 21:50 Dose: 1,000 ml Documented by: - Interaction Infant Disposition, : in Room with Family Infant Interaction: Holding Infant Feeding: Breastfed Infant; Nursed Well, Continues to Breastfeed, Encouraged to Breastfeed Support Person: Significant Other - Recovery Exam Fundal Tone: Firm Fundal Level: 1 Fingerbreadths Below Umbilicus Fundal Placement: Midline Lochia Amount: Scant Lochia Color: Rubra/Red Perineum Description: Intact, Minimal Bruising/Swelling Episiotomy/Laceration: None Bladder Status: Voiding Urinary Elimination: Voided - Exam General: Alert, Oriented, Cooperative, No Acute Distress Lungs: Normal Respiratory Effort Cardiovascular: Regular Rate, Regular Rhythm GI/Abdominal Exam: Soft, Non-Tender Extremities: Normal Inspection, Normal Range of Motion, Non-Tender, Normal Capillary Refill Skin: Warm, Dry, Intact Neurological: No New Focal Deficit, Normal Speech, Normal Tone, Strength Equal Bilateral, Sensation Intact Psy/Mental Status: Alert, Normal Affect, Normal Mood - Problem List & Annotations (1) (spontaneous vaginal delivery) SNOMED Code(s): 337276671 Code(s): O80 - ENCOUNTER FOR FULL-TERM UNCOMPLICATED DELIVERY Status: Acute Priority: High Current Visit: Yes - Problem List Review Problem List Initiated/Reviewed/Updated: Yes - Plan Plan:: Continue course of care PPD0 s/p of viable, term following SROM and spontaneous onset of labor. Continue regular diet. Plan to ambulate 3-5 times daily. No new orders. Dr. Barry notified and agreeable with POC. PP Day 1 A: well and bonding well with baby. Ambulating, voiding, and tolerating diet. NO concerns/questions at this time. P: Routine plan of care. Anticipate possible discharge this afternoon. Dr. Barry updated.
--- NOTE | 2021-02-26 08:32 | PCM.DCSUM1 ---
Discharge Summary - Hospital Course Free Text/Narrative:: Discharge home with baby. [facility] for routine visit; sooner, if needed. Diagnosis: Stroke: No Modified Alicia Scale: No Symptoms at All Modified Alicia Scale Score: 0 - Discharge Data Discharge Date: 02/26/21 Discharge Disposition: Home, Self-Care 01 Condition: Good - Referral to Home Health Primary Care Physician: PCP None - Discharge Diagnosis/Problem(s) (1) (spontaneous vaginal delivery) SNOMED Code(s): 845967114 ICD Code: O80 - ENCOUNTER FOR FULL-TERM UNCOMPLICATED DELIVERY Status: Acute Priority: High Current Visit: Yes - Patient Instructions Diet: Regular Diet as Tolerated, Drink 8-10+ Glasses/Day Activity: As Tolerated, No Strenuous Activities, Rest and Relax Today Driving: May Drive Today Showering/Bathing: May Shower Notify Provider of: Fever, Increased Pain, Swelling and Redness, Drainage, Nausea and/or Vomiting - Discharge Plan *PRESCRIPTION DRUG MONITORING PROGRAM REVIEWED*: Not Applicable *COPY OF PRESCRIPTION DRUG MONITORING REPORT IN PATIENT EVANGELIST: Not Applicable Prescriptions/Med Rec: Docusate Sodium [Colace] 100 mg PO Q12H PRN #60 cap PRN Reason: Constipation Lanolin [Lansinoh HPA] 1 tube TOP ASDIRECTED PRN #1 tube PRN Reason: Sore Nipples Ibuprofen [Motrin] 800 mg PO Q6H PRN #60 tablet PRN Reason: Cramping Home Medications: Home Meds Pnv #30/Iron Carb&Aspg/Fa/Om3 [OB Complete with DHA Softgel] 1 cap PO DAILY 12/28/20 [History] Docusate Sodium [Colace] 100 mg PO Q12H PRN #60 cap 02/26/21 [Rx] Ibuprofen [Motrin] 800 mg PO Q6H PRN #60 tablet 02/26/21 [Rx] Lanolin [Lansinoh HPA] 1 tube TOP ASDIRECTED PRN #1 tube 02/26/21 [Rx] Oxygen Therapy Mode: Room Air Patient Handouts: Vaginal Delivery Referrals: Carl Barry MD [Family Provider] - 04/08/21 3:00 pm (6-week check.) - Discharge Summary/Plan Comment DC Time >30 min.: Yes Total # of Minutes for Discharge Time: n/a - General Info Date of Service: 02/26/21 Admission Dx/Problem (Free Text: Patient Status Order with Admit Dx/Problem 02/24/21 08:45 Patient Status [ADT] Routine 02/24/21 09:43 Patient Status [ADT] Routine Admission Diagnosis/Problem Admission Diagnosis/Problem 02/24/21 12:18 Zora is a 20 yo at 38+2 weeks gestation (SIMRAN() 03/08/2021) that presents today w/ C/O painful contractions and SROM today at 9 am today. O pos, Ab screen neg, RI, GBS neg. Reports + FM; denies LOF, vaginal bleeding at this time. Unremarkable course. H/O uncertain paternity, desires tested upon ; PTSD, anxiety, depression. Patient confirmed vertex via SVE. Amnisure positive, confirmed SROM. Subjective Update: well and bonding well with baby. Ambulating, voiding, and tolerating diet. NO concerns/questions at this time. Functional Status: Reports: Pain Controlled, Tolerating Diet, Ambulating, Urinating - Review of Systems General: Reports: No Symptoms HEENT: Reports: No Symptoms Pulmonary: Reports: No Symptoms Cardiovascular: Reports: No Symptoms Gastrointestinal: Reports: No Symptoms Genitourinary: Reports: No Symptoms Musculoskeletal: Reports: No Symptoms Skin: Reports: No Symptoms Neurological: Reports: No Symptoms Psychiatric: Reports: No Symptoms - Patient Data Vitals - Most Recent: Last Vital Signs Temp 97.6 F 02/26/21 03:59 Pulse 63 02/26/21 03:59 Resp 17 02/26/21 03:59 BP 121/72 02/26/21 03:59 Pulse Ox 95 02/26/21 03:59 Weight - Most Recent: 150 lb Med Orders - Current: Current Medications Acetaminophen (Acetaminophen 500 Mg Tab) 500 mg PO Q4H PRN PRN Reason: Pain (mild 1-3) Last Admin: 02/24/21 22:39 Dose: 500 mg Documented by: Acetaminophen (Acetaminophen 500 Mg Tab) 1,000 mg PO Q4H PRN PRN Reason: Pain (mild 1-3) Last Admin: 02/26/21 03:49 Dose: 1,000 mg Documented by: Benzocaine/Menthol (Benzocaine/Menthol 20%-0.5% Glynn 78 Gm Cannister) 78 gm TOP ASDIRECTED PRN PRN Reason: Perineal Comfort Measure Last Admin: 02/24/21 23:13 Dose: 1 can Documented by: Bisacodyl (Bisacodyl 10 Mg Supp) 10 mg RECTAL ONETIME PRN PRN Reason: Constipation Docusate Sodium (Docusate Sodium 100 Mg Cap) 100 mg PO Q12H PRN PRN Reason: Constipation Last Admin: 02/25/21 15:33 Dose: 100 mg Documented by: Emollient Ointment (Lanolin 100% Cream 7 Gm Tube) 0 gm TOP ASDIRECTED PRN PRN Reason: Sore Nipples Last Admin: 02/24/21 23:14 Dose: 7 gm Documented by: Ibuprofen (Ibuprofen 400 Mg Tab) 400 mg PO Q4H PRN PRN Reason: Pain (mild 1-3) Ibuprofen (Ibuprofen 800 Mg Tab) 800 mg PO Q6H PRN PRN Reason: Cramping Last Admin: 02/25/21 23:21 Dose: 800 mg Documented by: Oxycodone HCl (Oxycodone 5 Mg Tab) 5 mg PO Q2H PRN PRN Reason: Pain (severe 7-10) Witch Irina (Witch Irina Medicated Pads 40/Jar) 1 pad TOP ASDIRECTED PRN PRN Reason: comfort care Last Admin: 02/24/21 23:14 Dose: 1 tub Documented by: Discontinued Medications Carboprost Tromethamine (Carboprost Tromethamine 250 Mcg/1 Ml Amp) 250 mcg IM ASDIRECTED PRN PRN Reason: Post Hemorrhage Ephedrine Sulfate (Ephedrine 50 Mg/Ml Sdv) 10 mg IVPUSH Q1M PRN PRN Reason: Hypotension Lactated Ringer's (Ringers, Lactated) 1,000 mls @ 150 mls/hr IV ASDIRECTED YANI Last Admin: 02/24/21 18:58 Dose: 150 mls/hr Documented by: Oxytocin/Sodium Chloride (Oxytocin 30 Unit In Ns 0.9% 500 Ml Premix) 30 unit in 500 mls @ 500 mls/hr IV TITRATE YANI Last Infusion: 02/24/21 22:05 Dose: 250 mls/hr Documented by: Tranexamic Acid 1,000 mg/ (Sodium Chloride) 110 mls @ 660 mls/hr IV ONETIME PRN PRN Reason: Bleeding Ropivacaine (Naropin 0.2%) Confirm Administered Dose 200 mls @ as directed .ROUTE .K-MED ONE Stop: 02/24/21 17:52 Last Admin: 02/24/21 19:04 Dose: Not Given Documented by: Lidocaine HCl (Lidocaine 1% 50 Ml Mdv) 50 ml INJECT ONETIME PRN PRN Reason: Laceration repair Methylergonovine Maleate (Methylergonovine 0.2 Mg/1 Ml Amp) 0.2 mg IM ASDIRECTED PRN PRN Reason: Post Hemorrhage Miscellaneous Medication (Phenylephrine Hcl In 0.9% Nacl 1 Mg/10 Ml Syringe) 0.1 mg IVPUSH Q1M PRN PRN Reason: Hypotension Misoprostol (Misoprostol 200 Mcg Tab) 200 mcg PO ONETIME PRN PRN Reason: Post Hemorrhage Nalbuphine HCl (Nalbuphine 10 Mg/1 Ml Vial) 10 mg IVPUSH Q1H PRN PRN Reason: Pain (severe 7-10) Last Admin: 02/24/21 16:47 Dose: 10 mg Documented by: Ondansetron HCl (Ondansetron 4 Mg/2 Ml Sdv) 4 mg IVPUSH Q6H PRN PRN Reason: Nausea/Vomiting Last Admin: 02/24/21 15:43 Dose: 4 mg Documented by: Ropivacaine (Ropivacaine/Pf 400 Mg/200 Ml Automated Equipment Engineer Technician) 400 mg EPIDUR ASDIRECTED YANI Sodium Chloride (Sodium Chloride 0.9% 10 Ml Syringe) 10 ml FLUSH ASDIRECTED PRN PRN Reason: Keep Vein Open Sodium Chloride (Sodium Chloride 0.9% 2.5 Ml Syringe) 2.5 ml FLUSH ASDIRECTED PRN PRN Reason: Keep Vein Open Sodium Chloride (Sodium Chloride 0.9% 10 Ml Sdv) 10 ml IV ASDIRECTED PRN PRN Reason: IV Use Sterile Water (Water For Irrigation,Sterile 1,000 Ml Container) 1,000 ml IRR ASDIRECTED PRN PRN Reason: delivery Last Admin: 02/24/21 21:50 Dose: 1,000 ml Documented by: - Exam General: Reports: Alert, Oriented, Cooperative, No Acute Distress Lungs: Reports: Normal Respiratory Effort Cardiovascular: Reports: Regular Rate, Regular Rhythm GI/Abdominal Exam: Soft, Non-Tender (Female) Exam: Deferred Rectal (Female) Exam: Deferred Back Exam: Reports: Normal Inspection, Full Range of Motion Extremities: Normal Inspection, Normal Range of Motion, Non-Tender, Normal Capillary Refill Skin: Reports: Warm, Dry, Intact Neurological: Reports: No New Focal Deficit, Normal Speech, Normal Tone, Sensation Intact Psy/Mental Status: Reports: Alert, Normal Affect, Normal Mood
[2021-02-26] MEDS: Docusate Sodium 100 MG Cap PO PRN (10:24)
== END 2021-02-26 14:03 | disposition home or self-care (01) | DRG 807 ==
LOC: MW.OBCHECK 08:55 → MW.OB 08:57 → MW.OBCHECK 09:43 → OBSVTOIN 21:39 → MW.OB 02-25 03:00
PROVIDERS: ADMIT Obstetrics & Gynecology; ATTEND Obstetrics & Gynecology
PROC: 10E0XZZ Delivery of Products of Conception, External Approach (ICD-10-PCS; principal; 2021-02-24)
PROC: 3E0R3BZ Introduction of Anesthetic Agent into Spinal Canal, Percutaneous Approach (ICD-10-PCS; 2021-02-24)
PROC: 00HU33Z Insertion of Infusion Device into Spinal Canal, Percutaneous Approach (ICD-10-PCS; 2021-02-24)
DX: O80 Encounter for full-term uncomplicated delivery (principal); Z37.0 Single live birth; Z3A.38 38 weeks gestation of pregnancy; Z20.822 Contact with and (suspected) exposure to COVID-19
CPT/HCPCS: 01967; 36415; 51702; 59025; 59409; 82803; 84112; 85027; 86592; 86850; 86900; 86901; A9270-GY; J2300; J2405; J2590; J2795; J7120; U0002

== ENCOUNTER 2021-03-17 02:23 | Emergency (ER) | payer OTHER ==
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
== END 2021-03-17 03:38 | disposition home or self-care (01) ==
LOC: MW.ED 02:23
DX: H61.21 Impacted cerumen, right ear (principal); Z88.2 Allergy status to sulfonamides
CPT/HCPCS: 69210; 99282-25

== ENCOUNTER 2021-08-02 16:47 | Emergency (ER) | payer OTHER ==
[2021-08-02] MEDS ORDERED: Sodium Chloride 0.9% 10 ML Syringe FLUSH PRN (17:30)
[2021-08-02] MEDS ORDERED: Sodium Chloride 0.9% 2.5 ML Syringe FLUSH PRN (17:30)
[2021-08-02] MEDS ORDERED: Sodium Chloride 0.9% 1,000 ML IV ONE (18:07)
[2021-08-02] MEDS ORDERED: Ondansetron 4 MG/2 ML SDV IVPUSH ONE (18:07)
[2021-08-02] MEDS: Morphine 2 MG/ML SYRINGE IVPUSH ONE ×2 (18:18→18:27)
[2021-08-02 18:26] LABS: BLOOD UREA NITROGEN,BUN 12 mg/dL (7.0-18.0); CHLORIDE,CL 101 mmol/L (98-107); GLUCOSE RANDOM 93 mg/dL (74-106); LIPASE 56 U/L (73-393); POTASSIUM,K 3.9 mmol/L (3.5-5.1); SODIUM,NA 138 mmol/L (136-145)
[2021-08-02] MEDS ORDERED: Ketorolac 30 MG/ML SDV IVPUSH ONE (18:27)
== END 2021-08-02 20:02 | disposition home or self-care (01) ==
LOC: MW.ED 16:47
DX: R10.11 Right upper quadrant pain (principal); Z88.1 Allergy status to other antibiotic agents
CPT/HCPCS: 36415; 74176; 80053; 81001; 83690; 84703; 85025; 87086; 96374; 96375; 99285; J1885; J2405; J7030; J2270

== ENCOUNTER 2021-12-21 14:05 | Emergency (ER) | payer OTHER ==
[2021-12-21 16:33] LABS: BLOOD UREA NITROGEN,BUN 9 mg/dL (7.0-18.0); CARBON DIOXIDE,CO2 27.3 mmol/L (21.0-32.0); CHLORIDE,CL 103 mmol/L (98-107); GLUCOSE RANDOM 94 mg/dL (74-106); SODIUM,NA 138 mmol/L (136-145)
[2021-12-21 16:39] LABS: ESTIMATED GFR 125 mL/min (>60)
== END 2021-12-21 17:24 | disposition home or self-care (01) ==
LOC: MW.ED 14:05
DX: N93.8 Other specified abnormal uterine and vaginal bleeding (principal); Z88.1 Allergy status to other antibiotic agents
CPT/HCPCS: 36415; 80053; 81001; 81025; 84703; 85025; 99283; 99284

== ENCOUNTER 2022-06-03 08:12 | Emergency (ER) | payer OTHER ==
[2022-06-03] MEDS ORDERED: Sodium Chloride 0.9% 1,000 ML IV ONE (08:30)
[2022-06-03] MEDS ORDERED: Sodium Chloride 0.9% 10 ML Syringe FLUSH PRN (08:30)
[2022-06-03] MEDS ORDERED: Sodium Chloride 0.9% 2.5 ML Syringe FLUSH PRN (08:30)
[2022-06-03] MEDS ORDERED: Ondansetron 4 MG/2 ML SDV IVPUSH ONE (08:42)
[2022-06-03] MEDS ORDERED: Ketorolac 30 MG/ML SDV IVPUSH ONE (09:10)
[2022-06-03 09:38] LABS: BLOOD UREA NITROGEN,BUN 8 mg/dL (7.0-18.0); CARBON DIOXIDE,CO2 23.5 mmol/L (21.0-32.0); CHLORIDE,CL 104 mmol/L (98-107); GLUCOSE RANDOM 95 mg/dL (74-106); LIPASE 62 U/L (73-393); POTASSIUM,K 3.9 mmol/L (3.5-5.1); SODIUM,NA 138 mmol/L (136-145)
[2022-06-03 09:39] LABS: ESTIMATED GFR 125 mL/min (>60)
[2022-06-03] MEDS ORDERED: Iopamidol 755 MG/ML 500 ML Multipack Bottle IVPUSH STA (10:13)
== END 2022-06-03 14:13 | disposition home or self-care (01) ==
LOC: MW.ED 08:12
DX: N83.201 Unspecified ovarian cyst, right side (principal); E86.0 Dehydration; K52.9 Noninfective gastroenteritis and colitis, unspecified; Z88.2 Allergy status to sulfonamides; Z72.0 Tobacco use
CPT/HCPCS: 36415; 74177; 76857; 80053; 81001; 81025; 83690; 84702; 85025; 87086; 96361; 96374; 99284; J1885; J3490; J7030; Q9967

== ENCOUNTER 2022-08-04 15:15 | Emergency (ER) | payer OTHER ==
[2022-08-04] MEDS ORDERED: Acetaminophen 500 MG Tab PO ONE (16:23)
[2022-08-04] MEDS ORDERED: Ondansetron 4 MG Tab.DIS PO ONE (16:24)
[2022-08-04 17:26] LABS: BLOOD UREA NITROGEN,BUN 12 mg/dL (7.0-18.0); CARBON DIOXIDE,CO2 23.1 mmol/L (21.0-32.0); CHLORIDE,CL 105 mmol/L (98-107); GLUCOSE RANDOM 93 mg/dL (74-106); POTASSIUM,K 3.8 mmol/L (3.5-5.1); SODIUM,NA 138 mmol/L (136-145)
[2022-08-04 17:42] LABS: ESTIMATED GFR 129 mL/min (>60)
[2022-08-04] MEDS ORDERED: Famotidine 20 MG/2 ML SDV IVPUSH ONE (17:55)
[2022-08-04] MEDS ORDERED: Alum Hydro/Mag Hydro/Simeth XS 15 ML, Lidocaine 2% 5 ML PO ONE ×2 (17:55)
[2022-08-04] MEDS ORDERED: Iopamidol 755 MG/ML 500 ML Multipack Bottle IVPUSH ONE (18:22)
== END 2022-08-04 19:29 | disposition home or self-care (01) ==
LOC: MW.ED 15:15
DX: K52.9 Noninfective gastroenteritis and colitis, unspecified (principal); Z88.1 Allergy status to other antibiotic agents; Z86.16 Personal history of COVID-19
CPT/HCPCS: 36415; 74177; 80053; 81001; 84702; 85025; 86900; 86901; 87086; 96374; 99284; A9270; J3490; Q9967

== ENCOUNTER 2022-08-13 13:26 | Emergency (ER) | payer OTHER ==
[2022-08-13] MEDS ORDERED: Ketorolac 30 MG/ML SDV IVPUSH ONE (14:23)
[2022-08-13] MEDS ORDERED: Sodium Chloride 0.9% 1,000 ML IV ONE (14:23)
[2022-08-13 15:07] LABS: CARBON DIOXIDE,CO2 25.4 mmol/L (21.0-32.0); POTASSIUM,K 3.7 mmol/L (3.5-5.1)
== END 2022-08-13 15:41 | disposition home or self-care (01) ==
LOC: MW.ED 13:26
DX: R10.31 Right lower quadrant pain (principal); R11.2 Nausea with vomiting, unspecified; R19.7 Diarrhea, unspecified; Z86.16 Personal history of COVID-19; Z88.2 Allergy status to sulfonamides
CPT/HCPCS: 36415; 76856; 80053; 85025; 96361; 96374; 99284; J1885; J7030

== ENCOUNTER 2023-02-25 08:25 | Emergency (ER) | payer SELFPAY ==
[2023-02-25] MEDS ORDERED: Ketorolac 30 MG/ML SDV IVPUSH ONE (08:42)
[2023-02-25] MEDS ORDERED: Sodium Chloride 0.9% 1,000 ML IV ONE (08:42)
[2023-02-25 09:06] LABS: BASOPHILS ABSOLUTE AUTO 0.02 K/uL (0.00-0.20); BASOPHILS PERCENT AUTO 0.5 % (0.0-1.0); EOSINOPHILS PERCENT AUTO 2.6 % (0.0-6.0); HEMATOCRIT 40.5 % (37.0-47.0); HEMOGLOBIN 13.8 g/dL (12.0-16.0); LYMPHOCYTES ABSOLUTE AUTO 2.05 K/uL (1.00-4.80); LYMPHOCYTES PERCENT AUTO 52.4 % (24.0-44.0); MEAN CORPUSCULAR HEMOGLOBIN 28.8 pg (28.0-32.0); MEAN CORPUSCULAR HGB CONC 34.1 g/dL (32.0-36.0); MEAN CORPUSCULAR VOLUME 84.4 fL (83.0-99.0); MONOCYTES ABSOLUTE AUTO 0.32 K/uL (0.00-0.80); MONOCYTES PERCENT AUTO 8.2 % (0.0-8.0); NEUTROPHILS ABSOLUTE AUTO 1.4 K/uL (1.8-7.7); NEUTROPHILS PERCENT AUTO 36.3 % (41.0-71.0); PLATELET COUNT,PLT 331 K/uL (150-400); WHITE BLOOD CELL COUNT,WBC 3.91 K/uL (3.9-11.3)
[2023-02-25 09:18] LABS: A/G RATIO 0.8 (0.9-1.6); ALBUMIN 3.4 g/dL (3.4-5.0); BILIRUBIN TOTAL 0.3 mg/dL (0.2-1.0); CALCIUM 8.7 mg/dL (8.5-10.1); CARBON DIOXIDE,CO2 23.8 mmol/L (21.0-32.0); CREATININE 0.8 mg/dL (0.6-1.0); EST CRCL DRUG DOSING (CG) 89.7 mL/min; POTASSIUM,K 3.8 mmol/L (3.5-5.1); PROTEIN TOTAL,TP 7.7 g/dL (6.4-8.2)
[2023-02-25 09:46] LABS: APPEARANCE,URINE CLOUDY; COLOR,URINE RED; GLUCOSE,URINE NEGATIVE (NEGATIVE); KETONES,URINE NEGATIVE (NEGATIVE); LEUKOCYTE ESTERASE,URINE TRACE (NEGATIVE); NITRITE,URINE NEGATIVE (NEGATIVE); OCCULT BLOOD,URINE MODERATE (NEGATIVE); PROTEIN,URINE TRACE mg/dL (NEGATIVE); UROBILINOGEN,URINE 0.2 EU/dL (<2.0)
[2023-02-25 09:49] LABS: BILIRUBIN,URINE SMALL (NEGATIVE)
[2023-02-25 10:00] LABS: RBC,URINE TOO NUMEROUS TO CT (0-2/HPF)
[2023-02-25 10:01] LABS: BACTERIA,URINE RARE (NEGATIVE); EPITHELIAL CELLS,URINE FEW (NONE-FEW); WBC,URINE 0-2 (0-5/HPF)
[2023-02-25] MEDS ORDERED: Morphine 4 MG/ML Syringe IVPUSH ONE (10:40)
[2023-02-25] MEDS ORDERED: Ondansetron 4 MG/2 ML SDV IVPUSH ONE (10:40)
[2023-02-25] MEDS ORDERED: Tranexamic Acid IN NACL,ISO-OS 1,000 MG in Premix Bag 1 BAG IV SCH ×2 (11:15)
== END 2023-02-25 11:43 | disposition home or self-care (01) ==
LOC: MW.ED 08:25
DX: N93.9 Abnormal uterine and vaginal bleeding, unspecified (principal); Z86.16 Personal history of COVID-19; Z88.2 Allergy status to sulfonamides; Z88.8 Allergy status to other drugs, medicaments and biological substances
CPT/HCPCS: 36415; 76857; 80053; 81001; 84702; 85025; 86850; 86900; 86901; 96361; 96374; 96375; 99284; J1885; J2270; J2405; J7030; J3490

== ENCOUNTER 2023-05-05 11:11 | Emergency (ER) | payer SELFPAY ==
[2023-05-05 11:33] LABS: APPEARANCE,URINE SLT CLOUDY; BILIRUBIN,URINE NEGATIVE (NEGATIVE); COLOR,URINE YELLOW; GLUCOSE,URINE NEGATIVE (NEGATIVE); KETONES,URINE TRACE mg/dL (NEGATIVE); LEUKOCYTE ESTERASE,URINE SMALL (NEGATIVE); NITRITE,URINE NEGATIVE (NEGATIVE); OCCULT BLOOD,URINE NEGATIVE (NEGATIVE); PROTEIN,URINE NEGATIVE (NEGATIVE); UROBILINOGEN,URINE 0.2 EU/dL (<2.0)
[2023-05-05 11:42] LABS: BACTERIA,URINE 1+ (NEGATIVE); EPITHELIAL CELLS,URINE MODERATE (NONE-FEW); RBC,URINE 0-2 (0-2/HPF)
[2023-05-05 12:03] LABS: BASOPHILS ABSOLUTE AUTO 0.02 K/uL (0.00-0.20); BASOPHILS PERCENT AUTO 0.4 % (0.0-1.0); EOSINOPHILS ABSOLUTE AUTO 0.06 K/uL (0.00-0.45); EOSINOPHILS PERCENT AUTO 1.3 % (0.0-6.0); HEMATOCRIT 39.5 % (37.0-47.0); HEMOGLOBIN 13.7 g/dL (12.0-16.0); IMMATURE GRAN ABSOLUTE AUTO 0.01 K/uL (0.00-0.05); IMMATURE GRAN PERCENT AUTO 0.2 % (0.0-0.4); LYMPHOCYTES ABSOLUTE AUTO 2.08 K/uL (1.00-4.80); LYMPHOCYTES PERCENT AUTO 45.5 % (24.0-44.0); MEAN CORPUSCULAR HGB CONC 34.7 g/dL (32.0-36.0); MEAN CORPUSCULAR VOLUME 83.7 fL (83.0-99.0); MONOCYTES ABSOLUTE AUTO 0.28 K/uL (0.00-0.80); MONOCYTES PERCENT AUTO 6.1 % (0.0-8.0); NEUTROPHILS ABSOLUTE AUTO 2.12 K/uL (1.80-7.70); NEUTROPHILS PERCENT AUTO 46.5 % (41.0-71.0); PLATELET COUNT,PLT 285 K/uL (150-400); RED BLOOD CELL COUNT 4.72 M/uL (4.10-5.30); WHITE BLOOD CELL COUNT,WBC 4.57 K/uL (3.9-11.3)
[2023-05-05 12:33] LABS: A/G RATIO 0.9 (0.9-1.6); ALANINE AMINOTRANSFERASE,ALT 25 IU/L (14-63); ALBUMIN 3.4 g/dL (3.4-5.0); ALKALINE PHOSPHATASE 66 U/L (46-116); ASPARTATE AMNIOTRANSFERASE,AST 8 IU/L (15-37); BILIRUBIN TOTAL 0.2 mg/dL (0.2-1.0); BLOOD UREA NITROGEN,BUN 10 mg/dL (7.0-18.0); CALCIUM 9.4 mg/dL (8.5-10.1); CARBON DIOXIDE,CO2 27.6 mmol/L (21.0-32.0); CHLORIDE,CL 104 mmol/L (98-107); CREATININE 0.7 mg/dL (0.6-1.0); EST CRCL DRUG DOSING (CG) 102.51 mL/min; GLUCOSE RANDOM 101 mg/dL (74-106); POTASSIUM,K 4.4 mmol/L (3.5-5.1); PROTEIN TOTAL,TP 7.2 g/dL (6.4-8.2); SODIUM,NA 139 mmol/L (136-145)
[2023-05-05 12:34] LABS: ESTIMATED GFR 124 mL/min (>60); HCG QUANTITATIVE < 1.0 mIU/mL
== END 2023-05-05 13:00 | disposition home or self-care (01) ==
LOC: MW.ED 11:11
DX: N93.8 Other specified abnormal uterine and vaginal bleeding (principal); N39.0 Urinary tract infection, site not specified; F17.210 Nicotine dependence, cigarettes, uncomplicated; Z86.16 Personal history of COVID-19; Z88.2 Allergy status to sulfonamides
CPT/HCPCS: 36415; 80053; 81001; 81025; 84702; 85025; 99283; 99284

== ENCOUNTER 2023-09-05 11:49 | Emergency (ER) | payer SELFPAY ==
[2023-09-05 12:35] LABS: APPEARANCE,URINE SLT CLOUDY; BILIRUBIN,URINE NEGATIVE (NEGATIVE); COLOR,URINE YELLOW; GLUCOSE,URINE NEGATIVE (NEGATIVE); KETONES,URINE NEGATIVE (NEGATIVE); LEUKOCYTE ESTERASE,URINE NEGATIVE (NEGATIVE); NITRITE,URINE NEGATIVE (NEGATIVE); OCCULT BLOOD,URINE SMALL (NEGATIVE); PROTEIN,URINE NEGATIVE (NEGATIVE); UROBILINOGEN,URINE 0.2 EU/dL (<2.0)
[2023-09-05 12:44] LABS: BACTERIA,URINE FEW (NEGATIVE); EPITHELIAL CELLS,URINE MANY (NONE-FEW); RBC,URINE 0-2 (0-2/HPF)
[2023-09-05] MEDS: Ondansetron 4 MG/2 ML SDV IVPUSH STA (12:48)
[2023-09-05] MEDS: Sodium Chloride 0.9% 1,000 ML IV STA (12:48)
[2023-09-05 12:57] LABS: BASOPHILS ABSOLUTE AUTO 0.02 K/uL (0.00-0.20); BASOPHILS PERCENT AUTO 0.4 % (0.0-1.0); EOSINOPHILS ABSOLUTE AUTO 0.06 K/uL (0.00-0.45); EOSINOPHILS PERCENT AUTO 1.2 % (0.0-6.0); HEMATOCRIT 41.4 % (37.0-47.0); HEMOGLOBIN 13.9 g/dL (12.0-16.0); LYMPHOCYTES ABSOLUTE AUTO 1.84 K/uL (1.00-4.80); LYMPHOCYTES PERCENT AUTO 35.8 % (24.0-44.0); MEAN CORPUSCULAR HEMOGLOBIN 29.1 pg (28.0-32.0); MEAN CORPUSCULAR HGB CONC 33.6 g/dL (32.0-36.0); MEAN CORPUSCULAR VOLUME 86.8 fL (83.0-99.0); MEAN PLATELET VOLUME 10.2 fL (9.4-12.3); MONOCYTES ABSOLUTE AUTO 0.46 K/uL (0.00-0.80); MONOCYTES PERCENT AUTO 8.9 % (0.0-8.0); NEUTROPHILS ABSOLUTE AUTO 2.76 K/uL (1.80-7.70); NEUTROPHILS PERCENT AUTO 53.7 % (41.0-71.0); PLATELET COUNT,PLT 276 K/uL (150-400); RED BLOOD CELL COUNT 4.77 M/uL (4.10-5.30); WHITE BLOOD CELL COUNT,WBC 5.14 K/uL (3.9-11.3)
[2023-09-05 13:12] LABS: INR 1.05 (0.86-1.11)
[2023-09-05 13:19] LABS: A/G RATIO 1.1 (0.9-1.6); ALBUMIN 3.7 g/dL (3.4-5.0); BILIRUBIN TOTAL 0.4 mg/dL (0.2-1.0); CALCIUM 8.8 mg/dL (8.5-10.1); CARBON DIOXIDE,CO2 26.5 mmol/L (21.0-32.0); CREATININE 0.8 mg/dL (0.6-1.0); EST CRCL DRUG DOSING (CG) 89.7 mL/min; PROTEIN TOTAL,TP 7.2 g/dL (6.4-8.2)
[2023-09-05 14:55] LABS: CANDIDA DNA PROBE NEGATIVE (NEGATIVE); GARDNERELLA DNA PROBE NEGATIVE (NEGATIVE); TRICHOMONAS DNA PROBE NEGATIVE (NEGATIVE)
[2023-09-05 15:39] LABS: C. TRACHOMATIS BY PCR NOT DETECTED; N. GONORRHOEAE BY PCR NOT DETECTED
== END 2023-09-05 15:49 | disposition home or self-care (01) ==
LOC: MW.ED 11:49
DX: T83.83XA Hemorrhage due to genitourinary prosthetic devices, implants and grafts, initial encounter (principal); N93.9 Abnormal uterine and vaginal bleeding, unspecified; Z88.2 Allergy status to sulfonamides; Z75.8 Other problems related to medical facilities and other health care
CPT/HCPCS: 36415; 76830; 80053; 81001; 83690; 84703; 85025; 85610; 86850; 86900; 86901; 87480; 87491; 87510; 87591; 87660; 96361; 96374; 99284; J2405; J7030

== ENCOUNTER 2024-01-06 12:31 | Emergency (ER) | payer SELFPAY ==
[2024-01-06] MEDS: EPINEPHrine 1 MG/1 ML Amp ONE (12:46)
[2024-01-06] MEDS: EPINEPHrine 1 MG/1 ML Amp IM STA (12:46)
[2024-01-06] MEDS: Sodium Chloride 0.9% 1,000 ML IV STA (12:47)
[2024-01-06] MEDS: Famotidine 20 MG/2 ML SDV IVPUSH STA (12:47)
[2024-01-06] MEDS: methylPREDNISolone Sodium Succinate 125 MG/2 ML SDV IVPUSH STA (12:47)
[2024-01-06] MEDS: diphenhydrAMINE 50 MG/ML SDV IVPUSH STA (12:47)
== END 2024-01-06 15:10 | disposition home or self-care (01) ==
LOC: MW.ED 12:31
DX: T78.2XXA Anaphylactic shock, unspecified, initial encounter (principal); Z75.8 Other problems related to medical facilities and other health care; Z88.2 Allergy status to sulfonamides; Z79.899 Other long term (current) drug therapy
CPT/HCPCS: 96361; 96372; 96374; 96375; 99284; J0171; J1200; J2919; J3490; J7030

== ENCOUNTER 2024-01-13 10:21 | Emergency (ER) | payer SELFPAY ==
[2024-01-13] MEDS: Sodium Chloride 0.9% 1,000 ML IV ONE (11:52)
[2024-01-13 12:03] LABS: BASOPHILS ABSOLUTE AUTO 0.02 K/uL (0.00-0.20); BASOPHILS PERCENT AUTO 0.2 % (0.0-1.0); HEMATOCRIT 40.5 % (37.0-47.0); HEMOGLOBIN 14.1 g/dL (12.0-16.0); IMMATURE GRAN ABSOLUTE AUTO 0.03 K/uL (0.00-0.05); IMMATURE GRAN PERCENT AUTO 0.3 % (0.0-0.4); LYMPHOCYTES ABSOLUTE AUTO 1.34 K/uL (1.00-4.80); LYMPHOCYTES PERCENT AUTO 14.5 % (24.0-44.0); MEAN CORPUSCULAR HEMOGLOBIN 29.4 pg (28.0-32.0); MEAN CORPUSCULAR HGB CONC 34.8 g/dL (32.0-36.0); MEAN CORPUSCULAR VOLUME 84.6 fL (83.0-99.0); MEAN PLATELET VOLUME 10.1 fL (9.4-12.3); MONOCYTES ABSOLUTE AUTO 0.31 K/uL (0.00-0.80); MONOCYTES PERCENT AUTO 3.3 % (0.0-8.0); NEUTROPHILS ABSOLUTE AUTO 7.57 K/uL (1.80-7.70); NEUTROPHILS PERCENT AUTO 81.7 % (41.0-71.0); PLATELET COUNT,PLT 295 K/uL (150-400); RED BLOOD CELL COUNT 4.79 M/uL (4.10-5.30); WHITE BLOOD CELL COUNT,WBC 9.27 K/uL (3.9-11.3)
[2024-01-13 12:37] LABS: A/G RATIO 1.1 (0.9-1.6); ALANINE AMINOTRANSFERASE,ALT 48 IU/L (14-63); ALBUMIN 3.7 g/dL (3.4-5.0); ALKALINE PHOSPHATASE 82 U/L (46-116); ASPARTATE AMNIOTRANSFERASE,AST 18 IU/L (15-37); BILIRUBIN TOTAL 0.3 mg/dL (0.2-1.0); BLOOD UREA NITROGEN,BUN 11 mg/dL (7.0-18.0); CARBON DIOXIDE,CO2 24.6 mmol/L (21.0-32.0); CHLORIDE,CL 106 mmol/L (98-107); CREATININE 0.8 mg/dL (0.6-1.0); EST CRCL DRUG DOSING (CG) 88.93 mL/min; GLUCOSE RANDOM 134 mg/dL (74-106); MAGNESIUM 1.9 mg/dL (1.8-2.4); POTASSIUM,K 3.7 mmol/L (3.5-5.1); PROTEIN TOTAL,TP 7.2 g/dL (6.4-8.2); SODIUM,NA 141 mmol/L (136-145); TSH ULTRASENSITIVE 0.73 uIU/mL (0.36-3.74)
[2024-01-13 12:38] LABS: ESTIMATED GFR 105 mL/min (>60)
[2024-01-13 13:01] LABS: APPEARANCE,URINE CLEAR; BILIRUBIN,URINE NEGATIVE (NEGATIVE); COLOR,URINE YELLOW; GLUCOSE,URINE NEGATIVE (NEGATIVE); KETONES,URINE NEGATIVE (NEGATIVE); LEUKOCYTE ESTERASE,URINE NEGATIVE (NEGATIVE); NITRITE,URINE NEGATIVE (NEGATIVE); OCCULT BLOOD,URINE NEGATIVE (NEGATIVE); PROTEIN,URINE NEGATIVE (NEGATIVE); UROBILINOGEN,URINE 0.2 EU/dL (<2.0)
[2024-01-13] MEDS: Acetaminophen 500 MG Tab PO ONE (14:32)
== END 2024-01-13 14:40 | disposition home or self-care (01) ==
LOC: MW.ED 10:21
DX: R55 Syncope and collapse (principal); F17.210 Nicotine dependence, cigarettes, uncomplicated; Z88.1 Allergy status to other antibiotic agents; Z88.2 Allergy status to sulfonamides; Z91.048 Other nonmedicinal substance allergy status; Z75.8 Other problems related to medical facilities and other health care
CPT/HCPCS: 36415; 70450; 80053; 81003; 81025; 83735; 84443; 84484; 85025; 93005; 93246; 96360; 96361; 99284; A9270; J7030; 93010; 99285

== ENCOUNTER 2024-02-18 09:39 | Emergency (ER) | payer SELFPAY ==
[2024-02-18] MEDS: traMADol 50 MG Tab PO ONE (10:31)
[2024-02-18] MEDS: Ondansetron 4 MG Tab.DIS PO ONE (10:32)
[2024-02-18 10:42] LABS: APPEARANCE,URINE CLEAR; BILIRUBIN,URINE NEGATIVE (NEGATIVE); COLOR,URINE YELLOW; GLUCOSE,URINE NEGATIVE (NEGATIVE); KETONES,URINE NEGATIVE (NEGATIVE); LEUKOCYTE ESTERASE,URINE NEGATIVE (NEGATIVE); NITRITE,URINE NEGATIVE (NEGATIVE); OCCULT BLOOD,URINE MODERATE (NEGATIVE); PROTEIN,URINE NEGATIVE (NEGATIVE); UROBILINOGEN,URINE 0.2 EU/dL (<2.0)
[2024-02-18 10:44] LABS: BASOPHILS ABSOLUTE AUTO 0.02 K/uL (0.00-0.20); BASOPHILS PERCENT AUTO 0.5 % (0.0-1.0); EOSINOPHILS ABSOLUTE AUTO 0.08 K/uL (0.00-0.45); HEMATOCRIT 43.9 % (37.0-47.0); HEMOGLOBIN 14.6 g/dL (12.0-16.0); LYMPHOCYTES ABSOLUTE AUTO 1.89 K/uL (1.00-4.80); LYMPHOCYTES PERCENT AUTO 48.2 % (24.0-44.0); MEAN CORPUSCULAR HEMOGLOBIN 29.1 pg (28.0-32.0); MEAN CORPUSCULAR HGB CONC 33.3 g/dL (32.0-36.0); MEAN CORPUSCULAR VOLUME 87.5 fL (83.0-99.0); MEAN PLATELET VOLUME 10.1 fL (9.4-12.3); MONOCYTES ABSOLUTE AUTO 0.31 K/uL (0.00-0.80); MONOCYTES PERCENT AUTO 7.9 % (0.0-8.0); NEUTROPHILS ABSOLUTE AUTO 1.62 K/uL (1.80-7.70); NEUTROPHILS PERCENT AUTO 41.4 % (41.0-71.0); PLATELET COUNT,PLT 286 K/uL (150-400); RED BLOOD CELL COUNT 5.02 M/uL (4.10-5.30); WHITE BLOOD CELL COUNT,WBC 3.92 K/uL (3.9-11.3)
[2024-02-18 10:53] LABS: EPITHELIAL CELLS,URINE OCCASIONAL (NONE-FEW); RBC,URINE 0-2 (0-2/HPF); WBC,URINE 0-2 (0-5/HPF)
[2024-02-18 10:54] LABS: BACTERIA,URINE FEW (NEGATIVE)
[2024-02-18 11:23] LABS: A/G RATIO 1.2 (0.9-1.6); BILIRUBIN TOTAL 0.5 mg/dL (0.2-1.0); CALCIUM 9.5 mg/dL (8.5-10.1); CARBON DIOXIDE,CO2 27.3 mmol/L (21.0-32.0); CREATININE 0.8 mg/dL (0.6-1.0); EST CRCL DRUG DOSING (CG) 88.93 mL/min; POTASSIUM,K 3.9 mmol/L (3.5-5.1); PROTEIN TOTAL,TP 7.3 g/dL (6.4-8.2)
[2024-02-18 11:32] LABS: CANDIDA DNA PROBE NEGATIVE (NEGATIVE); GARDNERELLA DNA PROBE POSITIVE (NEGATIVE); TRICHOMONAS DNA PROBE NEGATIVE (NEGATIVE)
[2024-02-18 12:12] LABS: C. TRACHOMATIS BY PCR NOT DETECTED; N. GONORRHOEAE BY PCR NOT DETECTED
[2024-02-19] MEDS: traMADol 50 MG Tab ONE (09:03)
== END 2024-02-18 12:26 | disposition home or self-care (01) ==
LOC: MW.ED 09:39
DX: N76.0 Acute vaginitis (principal); Z75.8 Other problems related to medical facilities and other health care; Z88.2 Allergy status to sulfonamides; Z91.048 Other nonmedicinal substance allergy status
CPT/HCPCS: 36415; 76830; 76830-26; 80053; 81001; 84703; 85025; 87480; 87491; 87510; 87591; 87660; 99284; A9270-GY

== ENCOUNTER 2024-04-30 19:27 | Emergency (ER) | payer SELFPAY ==
[2024-04-30 20:20] LABS: BASOPHILS ABSOLUTE AUTO 0.03 K/uL (0.00-0.20); BASOPHILS PERCENT AUTO 0.5 % (0.0-1.0); EOSINOPHILS ABSOLUTE AUTO 0.13 K/uL (0.00-0.45); HEMATOCRIT 41.5 % (37.0-47.0); HEMOGLOBIN 14.4 g/dL (12.0-16.0); IMMATURE GRAN ABSOLUTE AUTO 0.01 K/uL (0.00-0.05); IMMATURE GRAN PERCENT AUTO 0.2 % (0.0-0.4); LYMPHOCYTES ABSOLUTE AUTO 2.94 K/uL (1.00-4.80); LYMPHOCYTES PERCENT AUTO 44.7 % (24.0-44.0); MEAN CORPUSCULAR HEMOGLOBIN 29.6 pg (28.0-32.0); MEAN CORPUSCULAR HGB CONC 34.7 g/dL (32.0-36.0); MEAN CORPUSCULAR VOLUME 85.4 fL (83.0-99.0); MEAN PLATELET VOLUME 10.1 fL (9.4-12.3); MONOCYTES ABSOLUTE AUTO 0.47 K/uL (0.00-0.80); MONOCYTES PERCENT AUTO 7.1 % (0.0-8.0); NEUTROPHILS PERCENT AUTO 45.5 % (41.0-71.0); PLATELET COUNT,PLT 295 K/uL (150-400); RED BLOOD CELL COUNT 4.86 M/uL (4.10-5.30); WHITE BLOOD CELL COUNT,WBC 6.58 K/uL (3.9-11.3)
[2024-04-30 20:34] LABS: APPEARANCE,URINE CLEAR; BILIRUBIN,URINE NEGATIVE (NEGATIVE); COLOR,URINE YELLOW; GLUCOSE,URINE NEGATIVE (NEGATIVE); KETONES,URINE NEGATIVE (NEGATIVE); LEUKOCYTE ESTERASE,URINE NEGATIVE (NEGATIVE); NITRITE,URINE NEGATIVE (NEGATIVE); OCCULT BLOOD,URINE NEGATIVE (NEGATIVE); PH,URINE 6.5 (5.0-8.0); PROTEIN,URINE NEGATIVE (NEGATIVE); UROBILINOGEN,URINE 0.2 EU/dL (<2.0)
[2024-04-30] MEDS: Ondansetron 4 MG/2 ML SDV IVPUSH ONE (20:39)
[2024-04-30] MEDS: Sodium Chloride 0.9% 1,000 ML IV ONE (20:39)
[2024-04-30] MEDS: Morphine 4 MG/ML Syringe IVPUSH ONE (20:39)
[2024-04-30 20:44] LABS: A/G RATIO 1.3 (0.9-1.6); ALANINE AMINOTRANSFERASE,ALT 16 IU/L (14-63); ALKALINE PHOSPHATASE 61 U/L (46-116); ASPARTATE AMNIOTRANSFERASE,AST 14 IU/L (15-37); BILIRUBIN TOTAL 0.5 mg/dL (0.2-1.0); BLOOD UREA NITROGEN,BUN 9 mg/dL (7.0-18.0); CALCIUM 9.5 mg/dL (8.5-10.1); CARBON DIOXIDE,CO2 28.9 mmol/L (21.0-32.0); CHLORIDE,CL 105 mmol/L (98-107); CREATININE 0.9 mg/dL (0.6-1.0); GLUCOSE RANDOM 90 mg/dL (74-106); LIPASE 22 U/L (16-77); MAGNESIUM 1.9 mg/dL (1.8-2.4); POTASSIUM,K 3.9 mmol/L (3.5-5.1); PROTEIN TOTAL,TP 7.2 g/dL (6.4-8.2); SODIUM,NA 143 mmol/L (136-145)
[2024-04-30 20:52] LABS: ESTIMATED GFR 91 mL/min (>60)
[2024-04-30] MEDS: Iopamidol 755 MG/ML 500 ML Multipack Bottle IVPUSH ONE (20:54)
[2024-04-30] MEDS: Dicyclomine 10 MG Cap PO ONE (23:19)
== END 2024-04-30 23:25 | disposition home or self-care (01) ==
LOC: MW.ED 19:27
DX: N83.201 Unspecified ovarian cyst, right side (principal); F17.210 Nicotine dependence, cigarettes, uncomplicated; Z88.2 Allergy status to sulfonamides; Z91.048 Other nonmedicinal substance allergy status; Z75.8 Other problems related to medical facilities and other health care
CPT/HCPCS: 36415; 74177; 80053; 81003; 81025; 83690; 83735; 85025; 87428; 96361; 96374; 96375; 99284; A9270; J2270; J2405; J7030; Q9967

== ENCOUNTER 2024-05-02 10:58 | Emergency (ER) | payer SELFPAY ==
[2024-05-02 12:41] LABS: BASOPHILS ABSOLUTE AUTO 0.03 K/uL (0.00-0.20); BASOPHILS PERCENT AUTO 0.6 % (0.0-1.0); EOSINOPHILS ABSOLUTE AUTO 0.12 K/uL (0.00-0.45); EOSINOPHILS PERCENT AUTO 2.5 % (0.0-6.0); HEMATOCRIT 38.5 % (37.0-47.0); HEMOGLOBIN 13.5 g/dL (12.0-16.0); IMMATURE GRAN ABSOLUTE AUTO 0.01 K/uL (0.00-0.05); IMMATURE GRAN PERCENT AUTO 0.2 % (0.0-0.4); LYMPHOCYTES ABSOLUTE AUTO 1.94 K/uL (1.00-4.80); LYMPHOCYTES PERCENT AUTO 40.7 % (24.0-44.0); MEAN CORPUSCULAR HEMOGLOBIN 30.2 pg (28.0-32.0); MEAN CORPUSCULAR HGB CONC 35.1 g/dL (32.0-36.0); MEAN CORPUSCULAR VOLUME 86.1 fL (83.0-99.0); MONOCYTES ABSOLUTE AUTO 0.28 K/uL (0.00-0.80); MONOCYTES PERCENT AUTO 5.9 % (0.0-8.0); NEUTROPHILS ABSOLUTE AUTO 2.39 K/uL (1.80-7.70); NEUTROPHILS PERCENT AUTO 50.1 % (41.0-71.0); PLATELET COUNT,PLT 265 K/uL (150-400); RED BLOOD CELL COUNT 4.47 M/uL (4.10-5.30); WHITE BLOOD CELL COUNT,WBC 4.77 K/uL (3.9-11.3)
[2024-05-02] MEDS: Sodium Chloride 0.9% 1,000 ML IV ONE (12:56)
[2024-05-02 13:20] LABS: A/G RATIO 1.3 (0.9-1.6); ALBUMIN 3.7 g/dL (3.4-5.0); BILIRUBIN TOTAL 0.3 mg/dL (0.2-1.0); CALCIUM 8.7 mg/dL (8.5-10.1); CARBON DIOXIDE,CO2 26.7 mmol/L (21.0-32.0); CREATININE 0.8 mg/dL (0.6-1.0); EST CRCL DRUG DOSING (CG) 88.93 mL/min; POTASSIUM,K 4.4 mmol/L (3.5-5.1); PROTEIN TOTAL,TP 6.5 g/dL (6.4-8.2)
[2024-05-02] MEDS: Iopamidol 755 MG/ML 500 ML Multipack Bottle IVPUSH STA (13:55)
[2024-05-02] MEDS: Ketorolac 30 MG/ML SDV IVPUSH ONE (14:26)
[2024-05-02] MEDS: Morphine 2 MG/ML SYRINGE IVPUSH ONE (15:11)
== END 2024-05-02 16:08 | disposition home or self-care (01) ==
LOC: MW.ED 10:58
DX: N83.201 Unspecified ovarian cyst, right side (principal); Z91.048 Other nonmedicinal substance allergy status; Z88.2 Allergy status to sulfonamides; Z88.8 Allergy status to other drugs, medicaments and biological substances
CPT/HCPCS: 36415; 74177; 76830; 80053; 85025; 96361; 96374; 96375; 99284; J1885; J2270; J7030; Q9967

== ENCOUNTER 2024-06-07 15:33 | Emergency (ER) | payer SELFPAY ==
[2024-06-07 17:59] LABS: BASOPHILS ABSOLUTE AUTO 0.02 K/uL (0.00-0.20); BASOPHILS PERCENT AUTO 0.3 % (0.0-1.0); EOSINOPHILS ABSOLUTE AUTO 0.13 K/uL (0.00-0.45); EOSINOPHILS PERCENT AUTO 2.2 % (0.0-6.0); HEMATOCRIT 41.1 % (37.0-47.0); IMMATURE GRAN ABSOLUTE AUTO 0.01 K/uL (0.00-0.05); IMMATURE GRAN PERCENT AUTO 0.2 % (0.0-0.4); LYMPHOCYTES ABSOLUTE AUTO 2.89 K/uL (1.00-4.80); LYMPHOCYTES PERCENT AUTO 49.8 % (24.0-44.0); MEAN CORPUSCULAR HEMOGLOBIN 29.2 pg (28.0-32.0); MEAN CORPUSCULAR HGB CONC 34.1 g/dL (32.0-36.0); MEAN CORPUSCULAR VOLUME 85.6 fL (83.0-99.0); MONOCYTES ABSOLUTE AUTO 0.41 K/uL (0.00-0.80); MONOCYTES PERCENT AUTO 7.1 % (0.0-8.0); NEUTROPHILS ABSOLUTE AUTO 2.34 K/uL (1.80-7.70); NEUTROPHILS PERCENT AUTO 40.4 % (41.0-71.0); PLATELET COUNT,PLT 310 K/uL (150-400)
[2024-06-07 18:01] LABS: APPEARANCE,URINE CLEAR; BILIRUBIN,URINE NEGATIVE (NEGATIVE); COLOR,URINE YELLOW; GLUCOSE,URINE NEGATIVE (NEGATIVE); KETONES,URINE NEGATIVE (NEGATIVE); LEUKOCYTE ESTERASE,URINE NEGATIVE (NEGATIVE); NITRITE,URINE NEGATIVE (NEGATIVE); OCCULT BLOOD,URINE NEGATIVE (NEGATIVE); PROTEIN,URINE NEGATIVE (NEGATIVE); UROBILINOGEN,URINE 0.2 EU/dL (<2.0)
[2024-06-07] MEDS: Sodium Chloride 0.9% 1,000 ML IV ONE (18:02)
[2024-06-07] MEDS: Ketorolac 30 MG/ML SDV IVPUSH ONE (18:03)
[2024-06-07 18:24] LABS: ALANINE AMINOTRANSFERASE,ALT 25 IU/L (14-63); ALBUMIN 3.9 g/dL (3.4-5.0); ALKALINE PHOSPHATASE 80 U/L (46-116); ASPARTATE AMNIOTRANSFERASE,AST 14 IU/L (15-37); BILIRUBIN TOTAL 0.2 mg/dL (0.2-1.0); BLOOD UREA NITROGEN,BUN 7 mg/dL (7.0-18.0); CALCIUM 9.6 mg/dL (8.5-10.1); CARBON DIOXIDE,CO2 29.3 mmol/L (21.0-32.0); CHLORIDE,CL 104 mmol/L (98-107); CREATININE 0.8 mg/dL (0.6-1.0); GLUCOSE RANDOM 87 mg/dL (74-106); POTASSIUM,K 3.8 mmol/L (3.5-5.1); PROTEIN TOTAL,TP 7.7 g/dL (6.4-8.2); SODIUM,NA 140 mmol/L (136-145)
[2024-06-07 18:26] LABS: ESTIMATED GFR 105 mL/min (>60)
== END 2024-06-07 20:29 | disposition home or self-care (01) ==
LOC: MW.ED 15:33
DX: R10.12 Left upper quadrant pain (principal); R10.817 Generalized abdominal tenderness; F17.210 Nicotine dependence, cigarettes, uncomplicated; Z88.8 Allergy status to other drugs, medicaments and biological substances; Z79.899 Other long term (current) drug therapy; Z75.8 Other problems related to medical facilities and other health care; Z88.2 Allergy status to sulfonamides
CPT/HCPCS: 36415; 76705; 80053; 81003; 81025; 83690; 85025; 87428; 96361; 96374; 99284; J1885; J7030

== ENCOUNTER 2024-07-08 13:46 | Emergency (ER) | payer MEDICAID ==
[2024-07-08] MEDS: Ondansetron 4 MG/2 ML SDV IVPUSH STA (15:12)
[2024-07-08] MEDS: Ketorolac 30 MG/ML SDV IVPUSH STA (15:12)
[2024-07-08] MEDS: Sodium Chloride 0.9% 1,000 ML IV STA (15:12)
[2024-07-08 15:32] LABS: BASOPHILS ABSOLUTE AUTO 0.02 K/uL (0.00-0.20); BASOPHILS PERCENT AUTO 0.4 % (0.0-1.0); EOSINOPHILS ABSOLUTE AUTO 0.12 K/uL (0.00-0.45); EOSINOPHILS PERCENT AUTO 2.3 % (0.0-6.0); HEMATOCRIT 39.7 % (37.0-47.0); HEMOGLOBIN 13.9 g/dL (12.0-16.0); LYMPHOCYTES ABSOLUTE AUTO 2.37 K/uL (1.00-4.80); LYMPHOCYTES PERCENT AUTO 45.5 % (24.0-44.0); MEAN CORPUSCULAR HEMOGLOBIN 29.8 pg (28.0-32.0); MEAN PLATELET VOLUME 10.5 fL (9.4-12.3); MONOCYTES ABSOLUTE AUTO 0.38 K/uL (0.00-0.80); MONOCYTES PERCENT AUTO 7.3 % (0.0-8.0); NEUTROPHILS ABSOLUTE AUTO 2.32 K/uL (1.80-7.70); NEUTROPHILS PERCENT AUTO 44.5 % (41.0-71.0); PLATELET COUNT,PLT 263 K/uL (150-400); RED BLOOD CELL COUNT 4.67 M/uL (4.10-5.30); WHITE BLOOD CELL COUNT,WBC 5.21 K/uL (3.9-11.3)
[2024-07-08 16:13] LABS: A/G RATIO 1.1 (0.9-1.6); ALBUMIN 3.7 g/dL (3.4-5.0); BILIRUBIN TOTAL 0.3 mg/dL (0.2-1.0); CALCIUM 8.9 mg/dL (8.5-10.1); CARBON DIOXIDE,CO2 26.7 mmol/L (21.0-32.0); CREATININE 1.2 mg/dL (0.6-1.0); EST CRCL DRUG DOSING (CG) 59.28 mL/min; MAGNESIUM 2.1 mg/dL (1.8-2.4); POTASSIUM,K 3.7 mmol/L (3.5-5.1); PROTEIN TOTAL,TP 7.2 g/dL (6.4-8.2)
== END 2024-07-08 18:00 | disposition home or self-care (01) ==
LOC: MW.ED 13:46
DX: R10.11 Right upper quadrant pain (principal); R11.2 Nausea with vomiting, unspecified; Z79.899 Other long term (current) drug therapy; Z75.8 Other problems related to medical facilities and other health care; Z88.2 Allergy status to sulfonamides; Z91.048 Other nonmedicinal substance allergy status
CPT/HCPCS: 36415; 76705; 80053; 83690; 83735; 84703; 85025; 96361; 96374; 96375; 99284; J1885; J2405; J7030; 99283

== ENCOUNTER 2024-09-19 08:40 | Emergency (ER) | payer SELFPAY | END 2024-09-19 10:19 | disposition home or self-care (01) | LOC: MW.ED 08:40 | DX: S59.901A Unspecified injury of right elbow, initial encounter (principal); Z75.3 Unavailability and inaccessibility of health-care facilities; Z88.5 Allergy status to narcotic agent; Z88.8 Allergy status to other drugs, medicaments and biological substances; Z91.048 Other nonmedicinal substance allergy status; Z90.49 Acquired absence of other specified parts of digestive tract; X50.9XXA Other and unspecified overexertion or strenuous movements or postures, initial encounter | CPT/HCPCS: 73080; 99283; J1100 ==

== ENCOUNTER 2024-10-18 03:21 | Emergency (ER) | payer SELFPAY ==
[2024-10-18] MEDS ORDERED: Sodium Chloride 0.9% 20 ML SDV IV PRN (03:42)
[2024-10-18] MEDS ORDERED: Sodium Chloride 0.9% 10 ML Syringe FLUSH PRN (03:42)
[2024-10-18] MEDS ORDERED: Sodium Chloride 0.9% 2.5 ML Syringe FLUSH PRN (03:42)
[2024-10-18 03:50] LABS: BASOPHILS ABSOLUTE AUTO 0.02 K/uL (0.00-0.20); BASOPHILS PERCENT AUTO 0.3 % (0.0-1.0); EOSINOPHILS ABSOLUTE AUTO 0.12 K/uL (0.00-0.45); HEMATOCRIT 43.4 % (37.0-47.0); IMMATURE GRAN ABSOLUTE AUTO 0.02 K/uL (0.00-0.05); IMMATURE GRAN PERCENT AUTO 0.3 % (0.0-0.4); LYMPHOCYTES ABSOLUTE AUTO 2.72 K/uL (1.00-4.80); MEAN CORPUSCULAR HEMOGLOBIN 30.1 pg (28.0-32.0); MEAN CORPUSCULAR HGB CONC 34.6 g/dL (32.0-36.0); MEAN CORPUSCULAR VOLUME 87.1 fL (83.0-99.0); MEAN PLATELET VOLUME 10.4 fL (9.4-12.3); MONOCYTES ABSOLUTE AUTO 0.48 K/uL (0.00-0.80); MONOCYTES PERCENT AUTO 7.9 % (0.0-8.0); NEUTROPHILS ABSOLUTE AUTO 2.69 K/uL (1.80-7.70); NEUTROPHILS PERCENT AUTO 44.5 % (41.0-71.0); PLATELET COUNT,PLT 286 K/uL (150-400); RED BLOOD CELL COUNT 4.98 M/uL (4.10-5.30); WHITE BLOOD CELL COUNT,WBC 6.05 K/uL (3.9-11.3)
[2024-10-18] MEDS: Sodium Chloride 0.9% 1,000 ML IV STA (03:50)
[2024-10-18] MEDS: Morphine 4 MG/ML Syringe IVPUSH ONE (03:52)
[2024-10-18] MEDS: Ondansetron 4 MG/2 ML SDV IVPUSH ONE (03:52)
[2024-10-18 04:01] LABS: A/G RATIO 1.2 (0.9-1.6); BILIRUBIN TOTAL 0.3 mg/dL (0.2-1.0); CALCIUM 8.8 mg/dL (8.5-10.1); CARBON DIOXIDE,CO2 28.4 mmol/L (21.0-32.0); CREATININE 0.9 mg/dL (0.6-1.0); EST CRCL DRUG DOSING (CG) 79.04 mL/min; POTASSIUM,K 4.2 mmol/L (3.5-5.1); PROTEIN TOTAL,TP 7.3 g/dL (6.4-8.2)
[2024-10-18] MEDS: Iopamidol 755 MG/ML 500 ML Multipack Bottle IVPUSH ONE (04:23)
[2024-10-18 04:29] LABS: APPEARANCE,URINE CLOUDY; GLUCOSE,URINE NEGATIVE (NEGATIVE); KETONES,URINE 40 mg/dL (NEGATIVE); LEUKOCYTE ESTERASE,URINE NEGATIVE (NEGATIVE); NITRITE,URINE NEGATIVE (NEGATIVE); OCCULT BLOOD,URINE LARGE (NEGATIVE); PH,URINE 5.5 (5.0-8.0); PROTEIN,URINE >=300 mg/dL (NEGATIVE); UROBILINOGEN,URINE 0.2 EU/dL (<2.0)
[2024-10-18 04:32] LABS: BILIRUBIN,URINE SMALL (NEGATIVE); COLOR,URINE RED
[2024-10-18 04:33] LABS: BACTERIA,URINE 2+ (NEGATIVE); EPITHELIAL CELLS,URINE FEW (NONE-FEW); MUCUS,URINE FEW (NONE-MOD); RBC,URINE TOO NUMEROUS TO CT (0-2/HPF)
[2024-10-18 06:16] LABS: C. TRACHOMATIS BY PCR NOT DETECTED; N. GONORRHOEAE BY PCR NOT DETECTED
== END 2024-10-18 05:38 | disposition home or self-care (01) ==
LOC: MW.ED 03:21
DX: T83.31XA Breakdown (mechanical) of intrauterine contraceptive device, initial encounter (principal); N30.01 Acute cystitis with hematuria; Z88.8 Allergy status to other drugs, medicaments and biological substances; Z79.899 Other long term (current) drug therapy
CPT/HCPCS: 36415; 74177; 80053; 81001; 81025; 83690; 85025; 87491; 87591; 96361; 96374; 96375; 99284; J2270; J2405; J7030; Q9967

== ENCOUNTER 2024-12-15 13:33 | Emergency (ER) | payer OTHER ==
[2024-12-15 14:11] LABS: BASOPHILS ABSOLUTE AUTO 0.02 K/uL (0.00-0.20); BASOPHILS PERCENT AUTO 0.3 % (0.0-1.0); EOSINOPHILS ABSOLUTE AUTO 0.11 K/uL (0.00-0.45); EOSINOPHILS PERCENT AUTO 1.7 % (0.0-6.0); IMMATURE GRAN ABSOLUTE AUTO 0.01 K/uL (0.00-0.05); IMMATURE GRAN PERCENT AUTO 0.2 % (0.0-0.4); LYMPHOCYTES ABSOLUTE AUTO 2.41 K/uL (1.00-4.80); LYMPHOCYTES PERCENT AUTO 37.7 % (24.0-44.0); MEAN PLATELET VOLUME 10.4 fL (9.4-12.3); MONOCYTES ABSOLUTE AUTO 0.44 K/uL (0.00-0.80); MONOCYTES PERCENT AUTO 6.9 % (0.0-8.0); NEUTROPHILS ABSOLUTE AUTO 3.40 K/uL (1.80-7.70); NEUTROPHILS PERCENT AUTO 53.2 % (41.0-71.0); NRBC ABSOLUTE 0.00 K/uL (0.00-0.02); NRBC PERCENT 0.0 /100WBC (0.0-0.2); PLATELET COUNT,PLT 220 K/uL (150-400); RED BLOOD CELL COUNT 4.49 M/uL (4.10-5.30); WHITE BLOOD CELL COUNT,WBC 6.39 K/uL (3.9-11.3)
[2024-12-15 14:12] LABS: APPEARANCE,URINE CLEAR; GLUCOSE,URINE NEGATIVE (NEGATIVE); OCCULT BLOOD,URINE NEGATIVE (NEGATIVE)
[2024-12-15] MEDS ORDERED: Naloxone 0.4 MG/ML SDV IVPUSH PRN (14:25)
[2024-12-15] MEDS ORDERED: Sodium Chloride 0.9% 10 ML Syringe FLUSH PRN (14:26)
[2024-12-15] MEDS ORDERED: Sodium Chloride 0.9% 2.5 ML Syringe FLUSH PRN (14:26)
[2024-12-15 14:38] LABS: A/G RATIO 1.1 (0.9-1.6); ALANINE AMINOTRANSFERASE,ALT 26.0 IU/L (14-63); ASPARTATE AMNIOTRANSFERASE,AST 17.0 IU/L (15-37); BILIRUBIN TOTAL 0.3 mg/dL (0.2-1.0); BLOOD UREA NITROGEN,BUN 7.0 mg/dL (7.0-18.0); CARBON DIOXIDE,CO2 25.1 mmol/L (21.0-32.0); CHLORIDE,CL 105.0 mmol/L (98-107); CREATININE 0.9 mg/dL (0.6-1.0); EST CRCL DRUG DOSING (CG) 78.36 mL/min; ESTIMATED GFR 90.0 mL/min (>60); GLUCOSE RANDOM 108.0 mg/dL (74-106); POTASSIUM,K 4.2 mmol/L (3.5-5.1); PROTEIN TOTAL,TP 6.8 g/dL (6.4-8.2); SODIUM,NA 138.0 mmol/L (136-145)
[2024-12-15 14:43] LABS: INR 1.01 (0.86-1.11); PTT,PARTIAL THROMBOPLSTIN TIME 25.5 SEC (23.9-30.7)
[2024-12-15] MEDS: Iopamidol 755 MG/ML 500 ML Multipack Bottle IVPUSH STA (15:09)
[2024-12-15 15:19] LABS: LACTIC ACID 1.1 mmol/L (0.4-2.0)
[2024-12-15] MEDS ORDERED: Diatrizoate Meglumine/Diatrizoate Sodium 37% 30 ML Bottle PO ONE (18:45)
== END 2024-12-15 22:54 | disposition home or self-care (01) ==
LOC: MW.ED 13:33
DX: R10.31 Right lower quadrant pain (principal); Z88.2 Allergy status to sulfonamides; Z91.048 Other nonmedicinal substance allergy status
CPT/HCPCS: 36415; 74177; 76856; 80053; 81003; 81025; 83605; 83690; 83735; 85025; 85610; 85652; 85730; 86140; 87040; 96361; 96374; 96375; 96376; 99284; J2765; J7030; Q9967; J1171

== ENCOUNTER 2025-01-17 07:21 | Emergency (ER) | payer BC, OTHER | END 2025-01-17 09:51 | disposition home or self-care (01) | LOC: MW.ED 07:21 | DX: J02.9 Acute pharyngitis, unspecified (principal); Z79.899 Other long term (current) drug therapy; Z88.2 Allergy status to sulfonamides; Z88.8 Allergy status to other drugs, medicaments and biological substances; Z90.49 Acquired absence of other specified parts of digestive tract | CPT/HCPCS: 87426-QW; 87651; 99283 ==

== ENCOUNTER 2025-03-09 15:59 | Emergency (ER) | payer BC, MEDICAID, OTHER ==
[2025-03-09] MEDS: diphenhydrAMINE 50 MG/ML SDV IVPUSH ONE (16:40)
[2025-03-09] MEDS: Ketorolac 30 MG/ML SDV IVPUSH ONE (16:42)
[2025-03-09] MEDS: Prochlorperazine 10 MG/2 ML SDV IVPUSH ONE (16:44)
[2025-03-09] MEDS: Dexamethasone Sod Phos Preservative Free 10 MG/ML Vial IVPUSH ONE (16:47)
== END 2025-03-09 18:32 | disposition home or self-care (01) ==
LOC: MW.ED 15:59
DX: G43.909 Migraine, unspecified, not intractable, without status migrainosus (principal); Z79.899 Other long term (current) drug therapy; Z88.2 Allergy status to sulfonamides; Z88.8 Allergy status to other drugs, medicaments and biological substances; Z90.49 Acquired absence of other specified parts of digestive tract
CPT/HCPCS: 70450; 96361; 96374; 96375; 99283; J0780; J1100; J1200; J1885; J7030; 99284